=== PATIENT | female | born 1970 | race African-American/Black ===

== ENCOUNTER 2016-12-01 09:05 | Emergency (ER) | payer MEDICARE, OTHER ==
[~2016-12-01] VITALS: Ht 167.6 cm; Wt 75.9 kg
[~2016-12-01 09:05] MED LIST: ANR PR; ASPI-664 PO; AZIT250T94 PO; AZIT500T3 PO; CYCL-319 PO; DOCU-144 PO; GUAI120S26 PO; HYDR-3011 PO; IBUP-1542 PO; LOSA50TA6 PO; PROM6.25 PO; UDROBDM PO; ULT50 PO
[2016-12-01 09:30] VITALS: Ht 167.6 cm; Wt 75.9 kg
[2016-12-01] MEDS ORDERED: KETOROLAC 30 MG INJ IM STA (10:48)
[2016-12-01 11:07] LABS: URINE BLOOD (Dip) POC Negative (NEGATIVE)
--- NOTE | 2016-12-01 11:18 | ERD ---
ER Documentation Chief Complaint Date/Time DATE: 12/01/16 TIME: 11:16 Chief Complaint VAGINAL ITCHINESS X 5 DAYS HPI This is a 46-year-old female presenting to the emergency department for vaginal itching 5 days. Patient states itching is localized to genital area however has some generalized itching as well. No change in soap or detergent. No vaginal discharge or bleeding. No rash. No vaginal lesions. No dysuria or hematuria. Patient is and has no new sexual partners. No fevers or chills. Patient states itching started after she began a penicillin prescription prescribed by her dentist. No abdominal pain, nausea, vomiting or diarrhea. Patient states she has left-sided lower back pain that comes and goes. Denies any pain right now however last week she had severe left-sided lower back pain. Pain was nonradiating. ROS All systems reviewed and are negative except as per history of present illness. Medications Home Meds Active Scripts Diphenhydramine Hcl* (Benadryl*) 50 Mg Cap, 50 MG PO Q6 Y for ITCHING, #15 CAP Prov:DAMARI ARGUETA NP 12/01/16 Fluconazole* (Diflucan*) 150 Mg Tablet, 150 MG PO ONCE, #1 TAB Prov:DAMARI ARGUETA NP 12/01/16 Ibuprofen* (Motrin*) 600 Mg Tab, 600 MG PO Q6, #30 TAB Prov:ALISSON DAVILA PA-C 10/28/16 Vaknxyhnsac-K-Zqfimglegp Hb* (Guaifenesin* DM Syrup) 120 Ml Syrup, 10 ML PO Q4H Y for COUGH, #120 ML Prov:ALISSON DAVILA PA-C 10/28/16 Azithromycin* (Zithromax*) 250 Mg Tablet, 250 MG PO .ZPACK DIRECTED, #6 TAB TAKE 500 MG (2 TABS) THE FIRST DAY THEN 250 MG (1 TAB) DAYS 2-5 Prov:ALISSON DAVILA PA-C 10/28/16 Tramadol HCl (Tramadol HCl) 50 Mg Tablet, 50 MG PO Q6 Y for PAIN, #20 TAB Prov:JOVITA PENA PA-C 08/07/16 Ibuprofen* (Motrin*) 600 Mg Tab, 600 MG PO Q6H Y for PAIN AND OR ELEVATED TEMP, #30 TAB Prov:JOVITA PENA PA-C 08/07/16 Docusate Sodium* (Colace*) 100 Mg Capsule, 100 MG PO TID for 3 Days, #30 CAP Prov:HIEU JEAN 08/07/16 Hard Fat/Phenylephrine* (Anusol*) 1 Supp Supp, 1 SUPP CA Q6 for 3 Days, SUPP Prov:HIEU JEAN 08/07/16 Promethazine w/Codeine* (Phenergan w/Codeine* Syrup) 5 Ml Syrup, 5 ML PO Q4H Y for COUGH, #4 OZ Prov:SHAILESH SHELLEY PA-C 11/07/15 Azithromycin* (Zithromax*) 250 Mg Tablet, 250 MG PO .MARTINCK DIRECTED, #6 TAB TAKE 500 MG (2 TABS) THE FIRST DAY THEN 250 MG (1 TAB) DAYS 2-5 Prov:SHAILESH SHELLEY PA-C 11/07/15 Cyclobenzaprine Hcl* (Cyclobenzaprine Hcl*) 10 Mg Tablet, 10 MG PO TID, #15 TAB Prov:HIEU JEAN 09/25/15 Tramadol HCl (Tramadol HCl) 50 Mg Tab, 50 MG PO Q4 Y for PAIN, #20 TAB Prov:HIEU JEAN 09/25/15 Guaifenesin-Dextromethorphan* (Robitussin* DM) 100MG/10MG/5ML Syrup, 5 ML PO Q6H Y for COUGH, #1 ML Prov:JOSE JUAN CRUZ NP 04/30/15 Azithromycin* (Zithromax*) 500 Mg Tablet, 1000 MG PO ONCE, #1 TAB Prov:JOSE JUAN CRUZ LETTER OF CREDIT DOCUMENT EXAMINER 04/30/15 Reported Medications Losartan Potassium* (Losartan Potassium*) 50 Mg Tablet, 50 MG PO DAILY, TAB 11/13/14 Hydroxyzine Hcl* (Hydroxyzine Hcl*) 25 Mg Tablet, 25 MG PO DAILY, TAB 11/13/14 Aspirin* (Aspirin* EC) 81 Mg Tablet.dr, 81 MG PO DAILY, TAB 11/13/14 Allergies Allergies: Coded Allergies: Phenazopyridine (Verified Allergy, Unknown, 11/13/14) nitrofurantoin (Verified Allergy, Unknown, 11/13/14) prochlorperazine (Verified Allergy, Unknown, 11/13/14) PMhx/Soc History of Surgery: Yes (breast and head surgery) Anesthesia Reaction: No Hx Neurological Disorder: No Hx Respiratory Disorders: No Hx Cardiac Disorders: Yes (htn) Hx Psychiatric Problems: No Hx Miscellaneous Medical Probl: No Hx Alcohol Use: No Hx Substance Use: No Hx Tobacco Use: Yes Smoking Status: Current every day smoker Physical Exam Vitals Vital Signs Date Time Temp Pulse Resp B/P Pulse Ox O2 Delivery O2 Flow Rate FiO2 12/01/16 09:30 98.0 73 19 121/78 100 Physical Exam Const: No acute distress, alert Head: Atraumatic Eyes: Normal Conjunctiva ENT: Normal External Ears, Nose and Mouth. Neck: Full range of motion..~ No meningismus. Resp: Clear to auscultation bilaterally Cardio: Regular rate and rhythm, no murmurs Abd: Soft, non tender, non distended. Normal bowel sounds Skin: No petechiae or rashes Back: No midline or flank tenderness. No CVA tenderness Ext: No cyanosis, or edema Neur: Awake and alert Psych: Normal Mood and Affect Results 24 hrs Laboratory Tests Test 12/01/16 11:08 Bedside Urine Blood Negative Bedside Urine Glucose (UA) Negative Bedside Urine Ketones (LAB) Negative Bedside Urine Leukocyte Esterase (L Negative Bedside Urine Nitrite (LAB) Negative Bedside Urine Protein (LAB) Negative Bedside Urine pH (LAB) 6.5 Current Medications Medications (Trade) Dose Ordered Sig/Bobby Route PRN Reason Start Time Stop Time Status Last Admin Dose Admin Ketorolac Tromethamine (Toradol) 30 mg ONCE STAT IM 12/01/16 10:48 12/01/16 10:50 DC 12/01/16 11:33 Procedures/MDM ED COURSE: The patient was stable throughout ED course. I kept the patient and/or family informed of laboratory and diagnostic imaging results throughout the ED course. Toradol given Laboratory Urine dip negative Imaging Ultrasound kidneys Patient: ROBB VERNON : 1970 Age: 46 Sex: F MR #: [id number] DOS: 12/01/16 1048 Ordering MD: DAMARI ARGUETA NP Location: [facility] Room/Bed: PROCEDURE: Renal US. CLINICAL INDICATION: left sided low back pain r/o nephrolithiasis TECHNIQUE: Multiple sonographic images of the kidneys were obtained. The images were reviewed on a PACS workstation. COMPARISON: No prior studies are available for comparison. FINDINGS: The kidneys are well visualized. The right kidney measures 9.7 cm. The left kidney measures 9.5 cm. There are no focal areas of abnormal echogenicity. There is no evidence for obstructive uropathy. The bladder is collapsed. IMPRESSION: Unremarkable renal ultrasound. MDM: 46-year-old female presents to the emergency department for vaginal itching 5 days. Patient states she has generalized itching as well but more so localized to vagina. No vaginal discharge or bleeding. Patient also has history of intermittent left-sided flank pain. No pain at this time however patient is concerned about kidney stone. Patient now reports some pain to left flank and therefore Toradol given IM. Patient now denies pain. Patient reports history of alcohol abuse in the past. No alcohol intake at this time. Patient urinating well without difficulty. Urine dip negative for infection. Ultrasound kidneys unremarkable per radiology. Vital signs are stable. No fever or chills. exam is unremarkable. Patient is requesting that we test her for gonorrhea and chlamydia. No new sexual partners. Patient states generalized itching started after she began a penicillin prescription prescribed by her dentist. No rashes. Low suspicion for obstructive nephrolithiasis, UTI, pyelonephritis and appendicitis. Patient's differential diagnosis includes but not limited to allergic reaction, candidal vaginitis, bacterial vaginitis, gonorrhea, chlamydia , UTI, pelvic inflammatory disease, nephrolithiasis and pyelonephritis. Patient is appropriate for outpatient management will be given prescription for Diflucan. Instructed patient to follow-up with primary care provider in the next 2-3 days for reassessment. Return to ED for any high fever, chest pain, difficulty breathing, shortness breath, wheezing, vomiting, diarrhea, abdominal pain or any new or worsening symptoms. Patient verbalizes understanding. All questions answered at discharge. Departure Diagnosis: Primary Impression: Vaginitis Chronicity: acute Qualified Code: N76.0 - Acute vaginitis Additional Impressions: Back pain Back pain location: low back pain Chronicity: acute Back pain laterality: left Sciatica presence: without sciatica Qualified Code: M54.5 - Acute left- sided low back pain without sciatica Allergic reaction Encounter type: initial encounter Qualified Code: T78.40XA - Allergic reaction, initial encounter Condition: Stable DAMARI ARGUETA NP Dec 01, 2016 11:18
--- NOTE | 2016-12-01 11:32 | RADRPT ---
PROCEDURE: Renal US. CLINICAL INDICATION: left sided low back pain r/o nephrolithiasis TECHNIQUE: Multiple sonographic images of the kidneys were obtained. The images were reviewed on a PACS workstation. COMPARISON: No prior studies are available for comparison. FINDINGS: The kidneys are well visualized. The right kidney measures 9.7 cm. The left kidney measures 9.5 cm. There are no focal areas of abnormal echogenicity. There is no evidence for obstructive uropathy. Th e bladder is collapsed. IMPRESSION: Unremarkable renal ultrasound. RPTAT: QQ .Kat Petersen MD, Date Time Electronically viewed and signed by .Kat Petersen MD, MD on 12/01/2016 11:32 .J/
[2016-12-01] MEDS ORDERED: BEN50 PO (12:51)
[2016-12-01] MEDS ORDERED: FLUC150T17 PO (12:51)
== END 2016-12-01 13:01 | disposition home or self-care (01) ==
LOC: FTE 09:05
DX: N76.0 Acute vaginitis (principal); I10 Essential (primary) hypertension; F17.210 Nicotine dependence, cigarettes, uncomplicated; M54.5 Low back pain; T36.0X5A Adverse effect of penicillins, initial encounter; Z79.82 Long term (current) use of aspirin
CPT/HCPCS: 76775; 81003; 87591; 96372; 99285; J1885

== ENCOUNTER 2017-01-20 15:10 | Emergency (ER) | payer MEDICARE, OTHER ==
[~2017-01-20] VITALS: Wt 77.0 kg
[~2017-01-20 15:10] MED LIST changes: +BEN50 PO; +FLUC150T17 PO; +TRAM50TA2 PO; -ULT50 PO
[2017-01-20] MEDS ORDERED: ALBUTEROL 0.5% (NEB) 2.5 MG/0.5 ML AMP HHN STA (15:52)
[2017-01-20] MEDS ORDERED: DEXAMETHASONE 10 MG/ML 1 ML INJ PO ONE (16:00)
[2017-01-20] MEDS ORDERED: IBUPROFEN 600 MG TAB PO ONE (16:00)
--- NOTE | 2017-01-20 16:44 | RADRPT ---
PROCEDURE: XR Chest. CLINICAL INDICATION: COUGH TECHNIQUE: Single portable view of the chest was obtained COMPARISON: October 28, 2016 FINDINGS: The heart is normal in size. Pulmonary vascularity is within normal limits. The lungs are clear. There is no pleural effusion or pneumothorax. IMPRESSION: No acute cardiopulmonary process. Physician Walt Date Time Electronically viewed and signed by Sixto Alexander Physician on 01/20/2017 16:44 ML/
[2017-01-20] MEDS ORDERED: ALBU18HF INHALATION (16:52)
[2017-01-20] MEDS ORDERED: AZIT250T94 PO (16:52)
[2017-01-20] MEDS ORDERED: IBUP-1542 PO (16:52)
--- NOTE | 2017-01-20 16:57 | ERD ---
ER Documentation Chief Complaint Date/Time DATE: 01/20/17 TIME: 16:55 Chief Complaint FEVER, COUGH, BODYACHES, CONGESTION HPI This 46-year-old female presents with fever, cough and body aches for last 2 days. She has slight productive mucus. She denies any vomiting, abdominal pain , neck stiffness, rashes. ROS All systems reviewed and are negative except as per history of present illness. Medications Home Meds Active Scripts Albuterol Sulfate* (Ventolin HFA*) 18 Gm Hfa.aer.ad, 2 PUFF INHALATION Q4H, #1 INHALER Prov:WINSOME SCHULTZ MD 01/20/17 Ibuprofen* (Motrin*) 600 Mg Tab, 600 MG PO Q6, #15 TAB Prov:WINSOME SCHULTZ MD 01/20/17 Azithromycin* (Zithromax*) 250 Mg Tablet, 250 MG PO .ZPACK DIRECTED, #6 TAB TAKE 500 MG (2 TABS) THE FIRST DAY THEN 250 MG (1 TAB) DAYS 2-5 Prov:WINSOME SCHULTZ MD 01/20/17 Diphenhydramine Hcl* (Benadryl*) 50 Mg Cap, 50 MG PO Q6 Y for ITCHING, #15 CAP Prov:DAMARI ARGUETA NP 12/01/16 Fluconazole* (Diflucan*) 150 Mg Tablet, 150 MG PO ONCE, #1 TAB Prov:DAMARI ARGUETA NP 12/01/16 Ibuprofen* (Motrin*) 600 Mg Tab, 600 MG PO Q6, #30 TAB Prov:ALISSON DAVILA PA-C 10/28/16 Xjncahvefmh-V-Qnuopcrygb Hb* (Guaifenesin* DM Syrup) 120 Ml Syrup, 10 ML PO Q4H Y for COUGH, #120 ML Prov:ALISSON DAVILA PA-C 10/28/16 Azithromycin* (Zithromax*) 250 Mg Tablet, 250 MG PO .ZPACK DIRECTED, #6 TAB TAKE 500 MG (2 TABS) THE FIRST DAY THEN 250 MG (1 TAB) DAYS 2-5 Prov:ALISSON DAVILA PA-C 10/28/16 Tramadol HCl (Tramadol HCl) 50 Mg Tablet, 50 MG PO Q6 Y for PAIN, #20 TAB Prov:JOVITA PENA PA-C 08/07/16 Ibuprofen* (Motrin*) 600 Mg Tab, 600 MG PO Q6H Y for PAIN AND OR ELEVATED TEMP, #30 TAB Prov:JOVITA PENA PA-C 08/07/16 Docusate Sodium* (Colace*) 100 Mg Capsule, 100 MG PO TID for 3 Days, #30 CAP Prov:HIEU JEAN 08/07/16 Hard Fat/Phenylephrine* (Anusol*) 1 Supp Supp, 1 SUPP [place] Q6 for 3 Days, SUPP Prov:HIEU JEAN 08/07/16 Promethazine w/Codeine* (Phenergan w/Codeine* Syrup) 5 Ml Syrup, 5 ML PO Q4H Y for COUGH, #4 OZ Prov:SHAILESH SHELLEY PA-C 11/07/15 Azithromycin* (Zithromax*) 250 Mg Tablet, 250 MG PO .ZPACK DIRECTED, #6 TAB TAKE 500 MG (2 TABS) THE FIRST DAY THEN 250 MG (1 TAB) DAYS 2-5 Prov:SHAILESH SHELLEY PA-C 11/07/15 Cyclobenzaprine Hcl* (Cyclobenzaprine Hcl*) 10 Mg Tablet, 10 MG PO TID, #15 TAB Prov:HIEU JEAN 09/25/15 Tramadol HCl (Tramadol HCl) 50 Mg Tab, 50 MG PO Q4 Y for PAIN, #20 TAB Prov:HIEU JEAN 09/25/15 Guaifenesin-Dextromethorphan* (Robitussin* DM) 100MG/10MG/5ML Syrup, 5 ML PO Q6H Y for COUGH, #1 ML Prov:JOSE JUAN CRUZ NP 04/30/15 Azithromycin* (Zithromax*) 500 Mg Tablet, 1000 MG PO ONCE, #1 TAB Prov:JOSE JUAN CRUZ NP 04/30/15 Reported Medications Losartan Potassium* (Losartan Potassium*) 50 Mg Tablet, 50 MG PO DAILY, TAB 11/13/14 Hydroxyzine Hcl* (Hydroxyzine Hcl*) 25 Mg Tablet, 25 MG PO DAILY, TAB 11/13/14 Aspirin* (Aspirin* EC) 81 Mg Tablet.dr, 81 MG PO DAILY, TAB 11/13/14 Allergies Allergies: Coded Allergies: Phenazopyridine (Verified Allergy, Unknown, 11/13/14) nitrofurantoin (Verified Allergy, Unknown, 11/13/14) prochlorperazine (Verified Allergy, Unknown, 11/13/14) PMhx/Soc History of Surgery: Yes (breast and head surgery) Anesthesia Reaction: No Hx Neurological Disorder: No Hx Respiratory Disorders: No Hx Cardiac Disorders: Yes (htn) Hx Psychiatric Problems: No Hx Miscellaneous Medical Probl: No Hx Alcohol Use: No Hx Substance Use: No Hx Tobacco Use: Yes Smoking Status: Never smoker Physical Exam Vitals Vital Signs Date Time Temp Pulse Resp B/P Pulse Ox O2 Delivery O2 Flow Rate FiO2 01/20/17 16:03 87 18 96 21 01/20/17 15:13 101.4 99 19 119/77 98 Physical Exam Const: [] Alert, [id number]. Complete sentences. Head: Atraumatic Eyes: Normal Conjunctiva ENT: Normal External Ears, Nose and Mouth. Neck: Full range of motion..~ No meningismus. Resp: Clear to auscultation bilaterally. Wheezy cough without significant wheeze at rest no rales or retractions appreciated. Cardio: Regular rate and rhythm, no murmurs Abd: Soft, non tender, non distended. Normal bowel sounds Skin: No petechiae or rashes Back: No midline or flank tenderness Ext: No cyanosis, or edema Neur: Awake and alert Psych: Normal Mood and Affect Results 24 hrs Current Medications Medications (Trade) Dose Ordered Sig/Bobby Route PRN Reason Start Time Stop Time Status Last Admin Dose Admin Ibuprofen (Motrin) 600 mg ONCE ONCE PO 01/20/17 16:00 01/20/17 16:01 DC 01/20/17 15:59 Dexamethasone (Decadron) 8 mg ONCE ONCE PO 01/20/17 16:00 01/20/17 16:01 DC 01/20/17 15:59 Albuterol (Proventil 0.5% (Neb)) 2.5 mg ONCE STAT HHN 01/20/17 15:52 01/20/17 15:55 DC 01/20/17 16:02 Procedures/MDM Patient is given ibuprofen for fever. Patient was given Decadron 8 mg by mouth. She was given albuterol treatment 1. Chest X-ray 1V Interpreted by me: Soft Tissue: No acute abnormalities Bones: No acute abnormalities Mediastinum/Cardiac Silhouette/Lungs: [No acute abnormalities]. Impression- normal 1 view chest x-ray Patient presents with fever and body aches and URI symptoms suggestive of an acute viral illness without evidence of respiratory distress or hypoxemia.. Patient is requesting antibiotics will be administered with counseling that likely viral in okay to hold antibiotics for 2-3 days. She will be treated with Zithromax, Ventolin and ibuprofen and instructed to follow-up with primary doctor this week return to the ER for any worsening symptoms. The patient was stable with no new complaints during the ER course. Clinically, there is no current evidence to suggest meningitis, sepsis, acute abdomen, pneumonia, acute coronary syndrome, pulmonary embolism, or any other emergent condition appearing to require further evaluation or hospitalization. The patient should certainly return for any new or worsening symptoms per the aftercare instructions. They should otherwise follow-up with her primary care doctor for reevaluation this week. Departure Diagnosis: Primary Impression: Bronchitis Condition: Stable Patient Instructions: Bronchitis With Wheezing (Adult) Additional Instructions: X-ray normal. May be influenza but we will treat for bronchitis. Recheck for new or worsening symptoms with primary care doctor. WINSOME SCHULTZ MD Jan 20, 2017 16:57
[2017-01-20] MEDS ORDERED: D-ME473S18 PO (17:09)
== END 2017-01-20 17:16 | disposition home or self-care (01) ==
LOC: FTE 15:10
DX: J20.9 Acute bronchitis, unspecified (principal); I10 Essential (primary) hypertension; Z79.82 Long term (current) use of aspirin
CPT/HCPCS: 71010; 94664; 99284; J1100

== ENCOUNTER 2017-02-11 08:30 | Emergency (ER) | payer MEDICARE, OTHER ==
[~2017-02-11] VITALS: Ht 167.6 cm; Wt 77.0 kg
[~2017-02-11 08:30] MED LIST changes: +ALBU18HF INHALATION; +D-ME473S18 PO
[2017-02-11 08:32] VITALS: Ht 167.6 cm; Wt 77.0 kg
[2017-02-11] MEDS ORDERED: IBUP-1542 PO (08:49)
[2017-02-11] MEDS ORDERED: AMO500 PO (08:49)
--- NOTE | 2017-02-11 13:27 | ERD ---
ER Documentation Chief Complaint Date/Time DATE: 02/11/17 TIME: 13:26 Chief Complaint sore throat , ear pain x 3 days HPI Patient is a 46-year-old female with hypertension who presents with a sore throat. The patient says "I have strep throat". She says that she has a sore throat and ear pain. She says that it started 3 days ago and that her son was recently diagnosed with strep throat. The patient denies fevers. She has tried Tylenol for the pain. Upon review of old medical records patient has multiple visits to the ER for various complaints. ROS All systems reviewed and are negative except as per history of present illness. Medications Home Meds Active Scripts Ibuprofen* (Motrin*) 600 Mg Tab, 600 MG PO Q6H Y for PAIN AND OR ELEVATED TEMP, #30 TAB Prov:GIANLUCA RAMOS MD 02/11/17 Amoxicillin* (Amoxicillin*) 500 Mg Cap, 500 MG PO TID for 10 Days, CAP Prov:GIANLUCA RAMOS MD 02/11/17 Dextromethorphan Hb-Promethazine Hcl (Promethazine DM Syrup) 473 Ml Syrup, 10 ML PO Q6H Y for COUGH, #4 OZ Prov:HIEU JEAN 01/20/17 Albuterol Sulfate* (Ventolin HFA*) 18 Gm Hfa.aer.ad, 2 PUFF INHALATION Q4H, #1 INHALER Prov:WINSOME SCHULTZ MD 01/20/17 Ibuprofen* (Motrin*) 600 Mg Tab, 600 MG PO Q6, #15 TAB Prov:WINSOME SCHULTZ MD 01/20/17 Azithromycin* (Zithromax*) 250 Mg Tablet, 250 MG PO .ZPACK DIRECTED, #6 TAB TAKE 500 MG (2 TABS) THE FIRST DAY THEN 250 MG (1 TAB) DAYS 2-5 Prov:WINSOME SCHULTZ MD 01/20/17 Diphenhydramine Hcl* (Benadryl*) 50 Mg Cap, 50 MG PO Q6 Y for ITCHING, #15 CAP Prov:DAMARI ARGUETA NP 12/01/16 Fluconazole* (Diflucan*) 150 Mg Tablet, 150 MG PO ONCE, #1 TAB Prov:DAMARI ARGUETA NP 12/01/16 Ibuprofen* (Motrin*) 600 Mg Tab, 600 MG PO Q6, #30 TAB Prov:ALISSON DAVILA PA-C 10/28/16 Ebwbjcvbtxz-Y-Kfotitmjef Hb* (Guaifenesin* DM Syrup) 120 Ml Syrup, 10 ML PO Q4H Y for COUGH, #120 ML Prov:ALISSON DAVILA PA-C 10/28/16 Azithromycin* (Zithromax*) 250 Mg Tablet, 250 MG PO .ZPACK DIRECTED, #6 TAB TAKE 500 MG (2 TABS) THE FIRST DAY THEN 250 MG (1 TAB) DAYS 2-5 Prov:ALISSON DAIVLA PA-C 10/28/16 Tramadol HCl (Tramadol HCl) 50 Mg Tablet, 50 MG PO Q6 Y for PAIN, #20 TAB Prov:JOVITA PENA PA-C 08/07/16 Ibuprofen* (Motrin*) 600 Mg Tab, 600 MG PO Q6H Y for PAIN AND OR ELEVATED TEMP, #30 TAB Prov:JOVITA PENA PA-C 08/07/16 Docusate Sodium* (Colace*) 100 Mg Capsule, 100 MG PO TID for 3 Days, #30 CAP Prov:HIEU JEAN 08/07/16 Hard Fat/Phenylephrine* (Anusol*) 1 Supp Supp, 1 SUPP MT Q6 for 3 Days, SUPP Prov:HIEU JEAN 08/07/16 Promethazine w/Codeine* (Phenergan w/Codeine* Syrup) 5 Ml Syrup, 5 ML PO Q4H Y for COUGH, #4 OZ Prov:SHAILESH SHELLEY PA-C 11/07/15 Azithromycin* (Zithromax*) 250 Mg Tablet, 250 MG PO .ZPACK DIRECTED, #6 TAB TAKE 500 MG (2 TABS) THE FIRST DAY THEN 250 MG (1 TAB) DAYS 2-5 Prov:SHAILESH SHELLEY PA-C 11/07/15 Cyclobenzaprine Hcl* (Cyclobenzaprine Hcl*) 10 Mg Tablet, 10 MG PO TID, #15 TAB Prov:HIEU JEAN 09/25/15 Tramadol HCl (Tramadol HCl) 50 Mg Tab, 50 MG PO Q4 Y for PAIN, #20 TAB Prov:HIEU JEAN [place] 09/25/15 Guaifenesin-Dextromethorphan* (Robitussin* DM) 100MG/10MG/5ML Syrup, 5 ML PO Q6H Y for COUGH, #1 ML Prov:JOSE JUAN CRUZ NP 04/30/15 Azithromycin* (Zithromax*) 500 Mg Tablet, 1000 MG PO ONCE, #1 TAB Prov:JOSE JUAN CRUZ NP 04/30/15 Reported Medications Losartan Potassium* (Losartan Potassium*) 50 Mg Tablet, 50 MG PO DAILY, TAB 11/13/14 Hydroxyzine Hcl* (Hydroxyzine Hcl*) 25 Mg Tablet, 25 MG PO DAILY, TAB 11/13/14 Aspirin* (Aspirin* EC) 81 Mg Tablet.dr, 81 MG PO DAILY, TAB 11/13/14 Allergies Allergies: Coded Allergies: nitrofurantoin (Verified Allergy, Unknown, 02/11/17) phenazopyridine (Verified Allergy, Unknown, 02/11/17) prochlorperazine (Verified Allergy, Unknown, 02/11/17) PMhx/Soc History of Surgery: Yes (breast and head surgery) Anesthesia Reaction: No Hx Neurological Disorder: No Hx Respiratory Disorders: No Hx Cardiac Disorders: Yes (htn) Hx Psychiatric Problems: No Hx Miscellaneous Medical Probl: No Hx Alcohol Use: No Hx Substance Use: No Hx Tobacco Use: Yes Smoking Status: Current every day smoker FmHx Family History: No diabetes Physical Exam Vitals Vital Signs Date Time Temp Pulse Resp B/P Pulse Ox O2 Delivery O2 Flow Rate FiO2 02/11/17 08:32 98.5 80 18 131/86 97 Physical Exam Const: No acute distress Head: Atraumatic Eyes: Normal Conjunctiva ENT: Erythematous tonsils bilaterally, no stridor over the neck Neck: Full range of motion..~ No meningismus. Resp: Clear to auscultation bilaterally Cardio: Regular rate and rhythm, no murmurs Abd: Soft, non tender, non distended. Normal bowel sounds Skin: No petechiae or rashes Back: No midline or flank tenderness Ext: No cyanosis, or edema Neur: Awake and alert Psych: Normal Mood and Affect Procedures/MDM Smoking Cessation Therapy: Pt. was lectured for greater than 3 minutes on the health risks of continued smoking and the benefits of cessation. Patient is a 46-year-old female who presents with what appears to be a pharyngitis. The patient will be treated with amoxicillin. The patient's son had strep throat recently as well. The patient can return for any worsening symptoms. I doubt peritonsillar abscess, retropharyngeal abscess, or epiglottitis. I believe outpatient management is appropriate. The patient can return for any worsening symptoms. Departure Diagnosis: Primary Impression: Pharyngitis Pharyngitis/tonsillitis etiology: unspecified etiology Qualified Code: J02.9 - Pharyngitis, unspecified etiology Additional Impression: Sore throat Condition: Fair Patient Instructions: Pharyngitis, Strep (Presumed) Additional Instructions: Call your primary care doctor TOMORROW for an appointment during the next 1-2 days.See the doctor sooner or return here if your condition worsens before your appointment time. GIANLUCA RAMOS MD Feb 11, 2017 13:27
== END 2017-02-11 09:04 | disposition home or self-care (01) ==
LOC: FTE 08:30
DX: J02.9 Acute pharyngitis, unspecified (principal); I10 Essential (primary) hypertension; F17.210 Nicotine dependence, cigarettes, uncomplicated; Z79.82 Long term (current) use of aspirin
CPT/HCPCS: 99283

== ENCOUNTER 2017-03-10 08:44 | Emergency (ER) | payer MEDICARE, OTHER ==
[~2017-03-10] VITALS: Ht 167.6 cm; Wt 79.0 kg
[~2017-03-10 08:44] MED LIST changes: +AMO500 PO
[2017-03-10 08:47] VITALS: Ht 167.6 cm; Wt 79.0 kg
[2017-03-10] MEDS ORDERED: ALBU18HF INHALATION (09:39)
[2017-03-10] MEDS ORDERED: NAPR-260 PO (09:42)
[2017-03-10] MEDS ORDERED: [UNRECOGNIZED DRUG - CODE] PO (09:42)
[2017-03-10] MEDS ORDERED: FLUT9.9S NASAL (09:42)
[2017-03-10] MEDS ORDERED: POLY17PO6 PO (09:43)
[2017-03-10] MEDS ORDERED: DOCU-144 PO (09:44)
--- NOTE | 2017-03-10 09:57 | ERD ---
ER Documentation Chief Complaint Date/Time DATE: 03/10/17 TIME: 09:52 Chief Complaint cough , congestion , body ache x 2 days HPI This a 46-year-old female who presents to the emergency department today complaining of a "chest cold", ears clogged, back pain, constipation, runny nose , headache and cough. States she is unsure if she has had a fever. States she smoked cigarettes .Denies any dysuria, vomiting ROS All systems reviewed and are negative except as per history of present illness. Medications Home Meds Active Scripts Docusate Sodium* (Colace*) 100 Mg Capsule, 100 MG PO TID, #30 CAP Prov:CINDA DE LA CRUZ PA-C 03/10/17 Polyethylene Glycol* (Miralax*) 17 Gm Powd.pack, 17 GM PO DAILY, #10 Prov:CINDA DE LA CRUZ PA-C 03/10/17 Fluticasone Propionate (Flonase Allergy Relief) 9.9 Ml Reader.susp, 2 SPRAY NASAL DAILY, #1 BOTTLE TO EACH NOSTRIL Prov:CINDA DE LA CRUZ PA-C 03/10/17 Naproxen* (Naprosyn*) 500 Mg Tablet, 500 MG PO BID Y for PAIN AND/OR INFLAMMATION, #30 TAB Prov:CINDA DE LA CRUZ PA-C 03/10/17 Pseudoephedrine HCl (Sinus 12 Hour) 120 Mg Tablet.er, 120 MG PO BID, #20 TAB Prov:CINDA DE LA CRUZ PA-C 03/10/17 Albuterol Sulfate* (Ventolin HFA*) 18 Gm Hfa.aer.ad, 2 PUFF INHALATION Q4H, #1 INHALER Prov:CINDA DE LA CRUZ PA-C 03/10/17 Ibuprofen* (Motrin*) 600 Mg Tab, 600 MG PO Q6H Y for PAIN AND OR ELEVATED TEMP, #30 TAB Prov:GIANLUCA RAMOS MD 02/11/17 Amoxicillin* (Amoxicillin*) 500 Mg Cap, 500 MG PO TID for 10 Days, CAP Prov:GIANLUCA RAMOS MD 02/11/17 Dextromethorphan Hb-Promethazine Hcl (Promethazine DM Syrup) 473 Ml Syrup, 10 ML PO Q6H Y for COUGH, #4 OZ Prov:HIEU JEAN 01/20/17 Albuterol Sulfate* (Ventolin HFA*) 18 Gm Hfa.aer.ad, 2 PUFF INHALATION Q4H, #1 INHALER Prov:WINSOME SCHULTZ MD 01/20/17 Ibuprofen* (Motrin*) 600 Mg Tab, 600 MG PO Q6, #15 TAB Prov:WINSOME SCHULTZ MD 01/20/17 Azithromycin* (Zithromax*) 250 Mg Tablet, 250 MG PO .ZPACK DIRECTED, #6 TAB TAKE 500 MG (2 TABS) THE FIRST DAY THEN 250 MG (1 TAB) DAYS 2-5 Prov:WINSOME SCHULTZ MD 01/20/17 Diphenhydramine Hcl* (Benadryl*) 50 Mg Cap, 50 MG PO Q6 Y for ITCHING, #15 CAP Prov:DAMARI ARGUETA NP 12/01/16 Fluconazole* (Diflucan*) 150 Mg Tablet, 150 MG PO ONCE, #1 TAB Prov:DAMARI ARGUETA NP 12/01/16 Ibuprofen* (Motrin*) 600 Mg Tab, 600 MG PO Q6, #30 TAB Prov:ALISSON DAVILA PA-C 10/28/16 Hldrgimviyt-T-Fkrwpqwkno Hb* (Guaifenesin* DM Syrup) 120 Ml Syrup, 10 ML PO Q4H Y for COUGH, #120 ML Prov:ALISSON DAVILA PA-C 10/28/16 Azithromycin* (Zithromax*) 250 Mg Tablet, 250 MG PO .ZPACK DIRECTED, #6 TAB TAKE 500 MG (2 TABS) THE FIRST DAY THEN 250 MG (1 TAB) DAYS 2-5 Prov:ALISSON DAVILA PA-C 10/28/16 Tramadol HCl (Tramadol HCl) 50 Mg Tablet, 50 MG PO Q6 Y for PAIN, #20 TAB Prov:JOVITA PENA PA-C 08/07/16 Ibuprofen* (Motrin*) 600 Mg Tab, 600 MG PO Q6H Y for PAIN AND OR ELEVATED TEMP, #30 TAB Prov:JOVITA PENA PA-C 08/07/16 Docusate Sodium* (Colace*) 100 Mg Capsule, 100 MG PO TID for 3 Days, #30 CAP Prov:HIEU JEAN 08/07/16 Hard Fat/Phenylephrine* (Anusol*) 1 Supp Supp, 1 SUPP TX Q6 for 3 Days, SUPP Prov:HIEU JEAN 08/07/16 Promethazine w/Codeine* (Phenergan w/Codeine* Syrup) 5 Ml Syrup, 5 ML PO Q4H Y for COUGH, #4 OZ Prov:SHAILESH SHELLEY PA-C 11/07/15 Azithromycin* (Zithromax*) 250 Mg Tablet, 250 MG PO .ZPACK DIRECTED, #6 TAB TAKE 500 MG (2 TABS) THE FIRST DAY THEN 250 MG (1 TAB) DAYS 2-5 Prov:SHAILESH SHELLEY PA-C 11/07/15 Cyclobenzaprine Hcl* (Cyclobenzaprine Hcl*) 10 Mg Tablet, 10 MG PO TID, #15 TAB Prov:HIEU JEAN 09/25/15 Tramadol HCl (Tramadol HCl) 50 Mg Tab, 50 MG PO Q4 Y for PAIN, #20 TAB Prov:HIEU JEAN 09/25/15 Guaifenesin-Dextromethorphan* (Robitussin* DM) 100MG/10MG/5ML Syrup, 5 ML PO Q6H Y for COUGH, #1 ML Prov:JOSE JUAN CRUZ NP 04/30/15 Azithromycin* (Zithromax*) 500 Mg Tablet, 1000 MG PO ONCE, #1 TAB Prov:JOSE JUAN CRUZ NP 04/30/15 Reported Medications Losartan Potassium* (Losartan Potassium*) 50 Mg Tablet, 50 MG PO DAILY, TAB 11/13/14 Hydroxyzine Hcl* (Hydroxyzine Hcl*) 25 Mg Tablet, 25 MG PO DAILY, TAB 11/13/14 Aspirin* (Aspirin* EC) 81 Mg Tablet.dr, 81 MG PO DAILY, TAB 11/13/14 Allergies Allergies: Coded Allergies: nitrofurantoin (Verified Allergy, Unknown, 02/11/17) phenazopyridine (Verified Allergy, Unknown, 02/11/17) prochlorperazine (Verified Allergy, Unknown, 02/11/17) PMhx/Soc Medical and Surgical Hx: pt denies Medical Hx, pt denies Surgical Hx History of Surgery: Yes (breast and head surgery) Anesthesia Reaction: No Hx Neurological Disorder: No Hx Respiratory Disorders: No Hx Cardiac Disorders: Yes (htn) Hx Psychiatric Problems: No Hx Miscellaneous Medical Probl: No Hx Alcohol Use: No Hx Substance Use: No Hx Tobacco Use: No Physical Exam Vitals Vital Signs Date Time Temp Pulse Resp B/P Pulse Ox O2 Delivery O2 Flow Rate FiO2 03/10/17 08:47 98.3 85 18 146/93 100 Physical Exam Const: No acute distress Head: Atraumatic Eyes: Normal Conjunctiva ENT: Ears TMs normal. Nose mild drainage. Throat no erythema no exudate Neck: Full range of motion..~ No meningismus. Resp: Clear to auscultation bilaterally no absent breath sounds. No wheezing. Cardio: Regular rate and rhythm, no murmurs Abd: Soft, non tender, non distended. Normal bowel sounds Skin: No petechiae or rashes Back: No midline tenderness. Bilateral paraspinal tenderness. No CVA tenderness Ext: No cyanosis, or edema Neur: Awake and alert Psych: Normal Mood and Affect Procedures/MDM This a 46-year-old female who presents to the emergency department today with multiple complaints. Upon review of patient's medical records she has had multiple visits to the emergency department for various complaints. She was seen here on January 20 and was given azithromycin to treat a URI. She returned on February 11 and was given amoxicillin for pharyngitis. Patient is afebrile and otherwise well-appearing. Her oxygen saturation 100%. Do not feel that she requires a chest x-ray. Low suspicion for pneumonia, PE, abscess, pleural effusion, pneumothorax Patient symptoms at this time is consistent with URI likely viral. I have low suspicion for strep pharyngitis, peritonsillar abscess, retropharyngeal abscess , otitis media, PNA, sinusitis, abscess, meningitis, sepsis, or other acute infectious bacterial process. Patient reported constipation for the past 3 days. She states she has had this in the past. She is requesting medication for her constipation. She has no abdominal pain on physical exam. Low suspicion for obstruction. Patient was also requesting a refill on her inhaler and Sudafed. Patient was instructed to stop smoking cigarettes. Patient wanted to know what smoking cigarettes had to do with her cough. I have educated the patient. Patient indicated that she has been unable to get into her primary care doctor and that when she comes to the emergency room. Have explained to her that she does need to follow-up with her insurance and possibly change primary care doctor that she is never able to see them. Patient was also complaining of back pain that she states is chronic. See she has had a CT scan in the past and was try to get referral for an MRI however she has not been able to do this. Denies any loss of bowel or bladder control, dysuria. Do not feel the patient requires a UA or imaging at this time. Patient symptoms at this time is consistent with acute on chronic. Low suspicion for acute fracture dislocation, cauda equina or abscess Patient was given a prescription for Sudafed, Flonase, MiraLAX, Colace, Ventolin. I do not feel the patient requires antibiotics at this time. At this time the patient is stable for discharge and outpatient management. They should follow up with their PCP in the next 1-2. They may return to the emergency department sooner if symptoms persist or worsen. Patient understood and agreed with the plan. Departure Diagnosis: Primary Impression: Multiple complaints Condition: Fair Patient Instructions: Back Pain (Acute Or Chronic), Constipation (Adult), Uri, Viral, No Abx (Adult) Additional Instructions: Call your primary care doctor TOMORROW for an appointment during the next 1-2 days.See the doctor sooner or return here if your condition worsens before your appointment time. Take Sudafed as prescribed Use inhaler only as needed Take Naprosyn for back pain Use Flonase as prescribed Take MiraLAX and Colace for constipation CINDA DE LA CRUZ PA-C Mar 10, 2017 09:57
== END 2017-03-10 10:00 | disposition home or self-care (01) ==
LOC: FTE 08:44
DX: R05 Cough (principal); M54.9 Dorsalgia, unspecified; K59.00 Constipation, unspecified; R09.89 Other specified symptoms and signs involving the circulatory and respiratory systems; R51 Headache; F17.210 Nicotine dependence, cigarettes, uncomplicated; I10 Essential (primary) hypertension; Z79.82 Long term (current) use of aspirin
CPT/HCPCS: 99283

== ENCOUNTER 2017-09-16 01:23 | Emergency (ER) | payer MEDICARE, OTHER ==
[~2017-09-16] VITALS: Ht 167.6 cm; Wt 84.1 kg
[~2017-09-16 01:23] MED LIST changes: -AMO500 PO; +AMOX500C2 PO; +FLUT9.9S NASAL; +NAPR-260 PO; +POLY17PO6 PO; +[UNRECOGNIZED DRUG - CODE] PO
[2017-09-16 01:34] VITALS: Ht 167.6 cm; Wt 84.1 kg
[2017-09-16] MEDS ORDERED: HYDROCODONE/APAP (5/325) TAB PO STA (02:01)
--- NOTE | 2017-09-16 02:46 | RADRPT ---
PROCEDURE: CT brain without contrast. CLINICAL INDICATION: Headache. TECHNIQUE: CT scan of the brain was performed on a multi-detector high-resolution CT scanner. Co ntiguous axial images were obtained from the skull base to the vertex without intravenous contrast. Coronal and sagittal reformatted images were also obtained. Images were reviewed on the PACS works tation. One or more of the following dose reduction techniques were used: - Automated exposure control. - Adjustment of the mA and/or kV according to patient size. - Use of iterative reconstruction technique. Exam CTD/vol = 45.01 mGy. Total exam DLP = 810.25 mGy-cm. COMPARISON: None. FINDINGS: The ventricles and cortical sulci are prominent consistent with mild cerebral volume loss. There are no areas of abnormal attenuation within the brain parenchyma. There is no mass effect or midline sh ift. There is no intracranial hemorrhage or abnormal extra-axial collection. The calvarium is intact. There is no evidence of fracture. Visualized paranasal sinuses and mastoid air cells are clear. IMPRESSION: No acute intracranial abnormality identified. Mild cerebral volume loss. .Shon Welsh MD, MD Date Time Electronically viewed and signed by .Shon Welsh MD, MD on 09/16/2017 02:46 .T/
[2017-09-16] MEDS ORDERED: NAPR-260 PO (03:09)
[2017-09-16] MEDS ORDERED: NAPROXEN 500 MG TAB PO STA (03:12)
--- NOTE | 2017-09-16 03:41 | ERD ---
ER Documentation Chief Complaint Chief Complaint headache. states bump head on a doorway earlier at 1300 HPI This is a 47-year-old female presenting to the emergency department complaining of a severe headache and nasal pain status post hitting her head on a doorway at 1300. Patient states that she has had an anxiety attack and she took medication for anxiety. She denies taking any medications for this. She denies any neuro deficits ROS All systems reviewed and are negative except as per history of present illness. Medications Home Meds Active Scripts Naproxen* (Naprosyn*) 500 Mg Tablet, 500 MG PO BID, #30 TAB Prov:JOVITA PENA PA-C 09/16/17 Docusate Sodium* (Colace*) 100 Mg Capsule, 100 MG PO TID, #30 CAP Prov:CINDA DE LA CRUZ PA-C 03/10/17 Polyethylene Glycol* (Miralax*) 17 Gm Powd.pack, 17 GM PO DAILY, #10 Prov:CINDA DE LA CRUZ PA-C 03/10/17 Fluticasone Propionate (Flonase Allergy Relief) 9.9 Ml Sallis.susp, 2 SPRAY NASAL DAILY, #1 BOTTLE TO EACH NOSTRIL Prov:CINDA DE LA CRUZ PA-C 03/10/17 Naproxen* (Naprosyn*) 500 Mg Tablet, 500 MG PO BID Y for PAIN AND/OR INFLAMMATION, #30 TAB Prov:CINDA DE LA CRUZ PA-C 03/10/17 Pseudoephedrine HCl (Sinus 12 Hour) 120 Mg Tablet.er, 120 MG PO BID, #20 TAB Prov:ICNDA DE LA CRUZ PA-C 03/10/17 Albuterol Sulfate* (Ventolin HFA*) 18 Gm Hfa.aer.ad, 2 PUFF INHALATION Q4H, #1 INHALER Prov:CINDA DE LA CRUZ PA-C 03/10/17 Ibuprofen* (Motrin*) 600 Mg Tab, 600 MG PO Q6H Y for PAIN AND OR ELEVATED TEMP, #30 TAB Prov:GIANLUCA RAMOS MD 02/11/17 Amoxicillin* (Amoxicillin*) 500 Mg Cap, 500 MG PO TID for 10 Days, CAP Prov:GIANLUCA RAMOS MD 02/11/17 Dextromethorphan Hb-Promethazine Hcl (Promethazine DM Syrup) 473 Ml Syrup, 10 ML PO Q6H Y for COUGH, #4 OZ Prov:HIEU JEAN 01/20/17 Albuterol Sulfate* (Ventolin HFA*) 18 Gm Hfa.aer.ad, 2 PUFF INHALATION Q4H, #1 INHALER Prov:WINSOME SCHULTZ MD 01/20/17 Ibuprofen* (Motrin*) 600 Mg Tab, 600 MG PO Q6, #15 TAB Prov:WINSOME SCHULTZ MD 01/20/17 Azithromycin* (Zithromax*) 250 Mg Tablet, 250 MG PO .ZPACK DIRECTED, #6 TAB TAKE 500 MG (2 TABS) THE FIRST DAY THEN 250 MG (1 TAB) DAYS 2-5 Prov:WINSOME SCHULTZ MD 01/20/17 Diphenhydramine Hcl* (Benadryl*) 50 Mg Cap, 50 MG PO Q6 Y for ITCHING, #15 CAP Prov:DAMARI ARGUETA NP 12/01/16 Fluconazole* (Diflucan*) 150 Mg Tablet, 150 MG PO ONCE, #1 TAB Prov:DAMARI ARGUETA NP 12/01/16 Ibuprofen* (Motrin*) 600 Mg Tab, 600 MG PO Q6, #30 TAB Prov:ALISSON DAVILA PA-C 10/28/16 Sjphhnfqvpd-E-Svullcrdkm Hb* (Guaifenesin* DM Syrup) 120 Ml Syrup, 10 ML PO Q4H Y for COUGH, #120 ML Prov:ALISSON DAVILA PA-C 10/28/16 Azithromycin* (Zithromax*) 250 Mg Tablet, 250 MG PO .ZPACK DIRECTED, #6 TAB TAKE 500 MG (2 TABS) THE FIRST DAY THEN 250 MG (1 TAB) DAYS 2-5 Prov:ALISSON DAVILA PA-C 10/28/16 Tramadol HCl (Tramadol HCl) 50 Mg Tablet, 50 MG PO Q6 Y for PAIN, #20 TAB Prov:JOVITA PENA PA-C 08/07/16 Ibuprofen* (Motrin*) 600 Mg Tab, 600 MG PO Q6H Y for PAIN AND OR ELEVATED TEMP, #30 TAB Prov:JOVITA PENA PA-C 08/07/16 Docusate Sodium* (Colace*) 100 Mg Capsule, 100 MG PO TID for 3 Days, #30 CAP Prov:HIEU JEAN 08/07/16 Hard Fat/Phenylephrine* (Anusol*) 1 Supp Supp, 1 SUPP WI Q6 for 3 Days, SUPP Prov:HIEU JEAN 08/07/16 Promethazine w/Codeine* (Phenergan w/Codeine* Syrup) 5 Ml Syrup, 5 ML PO Q4H Y for COUGH, #4 OZ Prov:SHAILESH SHELLEY PA-C 11/07/15 Azithromycin* (Zithromax*) 250 Mg Tablet, 250 MG PO .[place] DIRECTED, #6 TAB TAKE 500 MG (2 TABS) THE FIRST DAY THEN 250 MG (1 TAB) DAYS 2-5 Prov:SHAILESH SHELLEY PA-C 11/07/15 Cyclobenzaprine Hcl* (Cyclobenzaprine Hcl*) 10 Mg Tablet, 10 MG PO TID, #15 TAB Prov:HIEU JEAN 09/25/15 Tramadol HCl (Tramadol HCl) 50 Mg Tab, 50 MG PO Q4 Y for PAIN, #20 TAB Prov:HIEU JEAN 09/25/15 Guaifenesin-Dextromethorphan* (Robitussin* DM) 100MG/10MG/5ML Syrup, 5 ML PO Q6H Y for COUGH, #1 ML Prov:JOSE JUAN CRUZ NP 04/30/15 Azithromycin* (Zithromax*) 500 Mg Tablet, 1000 MG PO ONCE, #1 TAB Prov:JOSE JUAN CRUZ NP 04/30/15 Reported Medications Losartan Potassium* (Losartan Potassium*) 50 Mg Tablet, 50 MG PO DAILY, TAB 11/13/14 Hydroxyzine Hcl* (Hydroxyzine Hcl*) 25 Mg Tablet, 25 MG PO DAILY, TAB 11/13/14 Aspirin* (Aspirin* EC) 81 Mg Tablet.dr, 81 MG PO DAILY, TAB 11/13/14 Allergies Allergies: Coded Allergies: nitrofurantoin (Verified Allergy, Unknown, 02/11/17) phenazopyridine (Verified Allergy, Unknown, 02/11/17) prochlorperazine (Verified Allergy, Unknown, 02/11/17) PMhx/Soc History of Surgery: Yes (breast and head surgery) Anesthesia Reaction: No Hx Neurological Disorder: No Hx Respiratory Disorders: No Hx Cardiac Disorders: Yes (htn) Hx Psychiatric Problems: Yes (anxiety) Hx Miscellaneous Medical Probl: No Hx Alcohol Use: No Hx Substance Use: No Hx Tobacco Use: No Smoking Status: Never smoker Physical Exam Vitals Vital Signs Date Time Temp Pulse Resp B/P Pulse Ox O2 Delivery O2 Flow Rate FiO2 09/16/17 01:34 98.1 78 20 139/81 100 Physical Exam GENERAL: well-developed/well-nourished, in no apparent distress, non-toxic appearing HENT: NC/AT, bilateral tympanic membrane is normal with good cone of light, nares patent, oropharynx clear without exudates EYES: Conjunctiva normal, PERRLA, EOMI, no nystagmus noted NECK: Supple, no lymphadenopathy PULM: CTA bilaterally, no rales, rhonchi, or wheezing heard CV: Normal S1S2, RRR, good capillary refill GI: Soft, non-distended, normal bowel sounds, non-tender BACK: No midline tenderness, no masses, No CVAT EXT: No clubbing, cyanosis, or edema NEURO: Alert and orientated to person, place, and time. CN II-IIX intact. Gait and coordination were normal. 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 There is no evidence of any facial fractures. There was no evidence of intracranial bleeding or skull fracture. CT did not show any evidence of acute pathology. Patient has a normal neurological exam. ED patient was given North for pain, she had some improvement. Patient is neurovascular intact to be discharged home. I have discussed with patient to continue to follow-up with her primary care physician and to return to the ER for any worsening signs or symptoms. Departure Diagnosis: Primary Impression: Headache Additional Impression: Nasal contusion Condition: Stable Patient Instructions: Self-Care for Headaches, Nasal Contusion Referrals: ANGELA HANSON DO (PCP) PASHA PILLAI MD,KATHLEEN AGUILAR,BHARGAV Bo MD Additional Instructions: FOLLOW UP WITH YOUR PRIMARY CARE PHYSICIAN TOMORROW.Return to this facility if you are not improving as expected. Take all medicines as directed. Return to this facility if you are not improving as expected. JOVITA PENA PA-C Sep 16, 2017 03:41 JOVITA PENA PA-C Sep 16, 2017 03:41
[2017-09-16 03:49] VITALS: BP 130/89; PULSE 74; RESP 22
== END 2017-09-16 03:49 | disposition home or self-care (01) ==
LOC: FTE 01:23
DX: S00.33XA Contusion of nose, initial encounter (principal); I10 Essential (primary) hypertension; W22.8XXA Striking against or struck by other objects, initial encounter; Y92.9 Unspecified place or not applicable; Z79.82 Long term (current) use of aspirin
CPT/HCPCS: 70450

== ENCOUNTER 2017-10-05 10:57 | Emergency (ER) | payer MEDICARE, OTHER ==
[~2017-10-05] VITALS: Ht 167.6 cm; Wt 81.9 kg
[2017-10-05 11:00] VITALS: Ht 167.6 cm; Wt 81.9 kg
[2017-10-05] MEDS ORDERED: IPRATROPIUM (NEB) 0.5 MG/2.5 ML AMP NEB STA (12:05)
[2017-10-05] MEDS ORDERED: ALBUTEROL 0.083% (NEB) 2.5 MG/3 ML AMP NEB STA (12:05)
[2017-10-05 12:30] LABS: BASOPHILS % 0.5 % (0.0-2.0); EOSINOPHILS # 0.1 10^3/ul (0.0-0.5); EOSINOPHILS % 2.2 % (0.0-7.0); HEMATOCRIT 40.5 % (37.0-47.0); HEMOGLOBIN 13.5 g/dl (12.0-16.0); LYMPHOCYTES # 1.2 10^3/ul (0.8-2.9); LYMPHOCYTES % 18.9 % (15.0-51.0); MEAN CORPUSCULAR HEMOGLOBIN 32.5 pg (29.0-33.0); MEAN CORPUSCULAR HGB CONC 33.3 g/dl (32.0-37.0); MEAN CORPUSCULAR VOLUME 97.6 fl (82.0-101.0); MEAN PLATELET VOLUME 11.7 fl (7.4-10.4); MONOCYTE # 0.5 10^3/ul (0.3-0.9); MONOCYTES % 7.8 % (0.0-11.0); NEUTROPHIL # 4.4 10^3/ul (1.6-7.5); NEUTROPHILS % 70.4 % (39.0-77.0); PLATELET COUNT 218 10^3/UL (140-415); RED BLOOD COUNT 4.15 10^6/ul (4.20-5.40); RED CELL DISTRIBUTION WIDTH 12.4 % (11.5-14.5); WHITE BLOOD COUNT 6.3 10^3/ul (4.8-10.8)
[2017-10-05] MEDS ORDERED: MECLIZINE 12.5 MG TAB PO ONE (12:30)
[2017-10-05 12:53] LABS: ANION GAP 16 (8-16); BLOOD UREA NITROGEN 20 mg/dl (7-20); CALCIUM 9.2 mg/dl (8.4-10.2); CARBON DIOXIDE 29 mmol/L (21-31); CHLORIDE 100 mmol/L (97-110); CREATININE 0.81 mg/dl (0.44-1.00); GLUCOSE 84 mg/dl (70-220); POTASSIUM 5.1 mmol/L (3.5-5.1); SODIUM 140 mmol/L (135-144)
[2017-10-05 13:09] LABS: TROPONIN-I < 0.012 ng/ml (0.00-0.12)
[2017-10-05] MEDS ORDERED: IBUP800T25 PO (13:22)
[2017-10-05] MEDS ORDERED: ALBU18HF INHALATION (13:22)
[2017-10-05] MEDS ORDERED: FLUT9.9S NASAL (13:22)
[2017-10-05] MEDS ORDERED: MECL12.574 PO (13:22)
--- NOTE | 2017-10-05 13:26 | ERD ---
ER Documentation Chief Complaint Chief Complaint dizziness and SOB x 2 days HPI This is a 47-year-old female, smoking history presents to the emergency room with dizziness and shortness of breath. She describes nasal congestion, sinus congestion, dizziness that she describes as the room spinning and worse when she is standing up and moving her head from side to side. She denies any dysarthria, dysmetria or ataxia. The patient also describes a dry nonproductive cough for several days. She states this feels like pneumonia that she has had in the past. She also reports that she may have had a heart attack in the past but does not have any stents. She states this was around when she had delivery of her child. She denies any current cardiology follow- up or cardiac issues at this point. She denies any chest pain pleuritic pain or exertional symptoms. ROS All systems reviewed and are negative except as per history of present illness. Medications Home Meds Active Scripts Meclizine Hcl* (Antivert*) 12.5 Mg Tab, 12.5 MG PO Q6H Y for DIZZINESS, #20 TAB Prov:BERTIN HOLM MD 10/05/17 Ibuprofen* (Motrin*) 800 Mg Tab, 800 MG PO Q6H Y for PAIN AND OR ELEVATED TEMP, #30 TAB Prov:BERTIN HOLM MD 10/05/17 Fluticasone Propionate (Flonase Allergy Relief) 9.9 Ml [place].susp, 1 SPRAY NASAL BID, #1 BOTTLE TO EACH NOSTRIL Prov:BERTIN HOLM MD 10/05/17 Albuterol Sulfate* (Ventolin HFA*) 18 Gm Hfa.aer.ad, 2 PUFF INHALATION Q4H, #1 INHALER Prov:BERTIN HOLM MD 10/05/17 Naproxen* (Naprosyn*) 500 Mg Tablet, 500 MG PO BID, #30 TAB Prov:JOVITA PENA PA-C 09/16/17 Docusate Sodium* (Colace*) 100 Mg Capsule, 100 MG PO TID, #30 CAP Prov:CINDA DE LA CRUZ PA-C 03/10/17 Polyethylene Glycol* (Miralax*) 17 Gm Powd.pack, 17 GM PO DAILY, #10 Prov:CINDA DE LA CRUZ PA-C 03/10/17 Fluticasone Propionate (Flonase Allergy Relief) 9.9 Ml [place].susp, 2 SPRAY NASAL DAILY, #1 BOTTLE TO EACH NOSTRIL Prov:CINDA DE LA CRUZ PA-C 03/10/17 Naproxen* (Naprosyn*) 500 Mg Tablet, 500 MG PO BID Y for PAIN AND/OR INFLAMMATION, #30 TAB Prov:CINDA DE LA CRUZ PA-C 03/10/17 Pseudoephedrine HCl (Sinus 12 Hour) 120 Mg Tablet.er, 120 MG PO BID, #20 TAB Prov:CINDA DE LA CRUZ PA-C 03/10/17 Albuterol Sulfate* (Ventolin HFA*) 18 Gm Hfa.aer.ad, 2 PUFF INHALATION Q4H, #1 INHALER Prov:CINDA DE LA CRUZ PA-C 03/10/17 Ibuprofen* (Motrin*) 600 Mg Tab, 600 MG PO Q6H Y for PAIN AND OR ELEVATED TEMP, #30 TAB Prov:GIANLUCA RAMOS MD 02/11/17 Amoxicillin* (Amoxicillin*) 500 Mg Cap, 500 MG PO TID for 10 Days, CAP Prov:GIANLUCA RAMOS MD 02/11/17 Dextromethorphan Hb-Promethazine Hcl (Promethazine DM Syrup) 473 Ml Syrup, 10 ML PO Q6H Y for COUGH, #4 OZ Prov:HIEU JEAN 01/20/17 Albuterol Sulfate* (Ventolin HFA*) 18 Gm Hfa.aer.ad, 2 PUFF INHALATION Q4H, #1 INHALER Prov:WINSOME SCHULTZ MD 01/20/17 Ibuprofen* (Motrin*) 600 Mg Tab, 600 MG PO Q6, #15 TAB Prov:WINSOME SCHULTZ MD 01/20/17 Azithromycin* (Zithromax*) 250 Mg Tablet, 250 MG PO .[place] DIRECTED, #6 TAB TAKE 500 MG (2 TABS) THE FIRST DAY THEN 250 MG (1 TAB) DAYS 2-5 Prov:WINSOME SCHULTZ MD 01/20/17 Diphenhydramine Hcl* (Benadryl*) 50 Mg Cap, 50 MG PO Q6 Y for ITCHING, #15 CAP Prov:DAMARI ARGUETAChelsie TEAM [employer]ER 12/01/16 Fluconazole* (Diflucan*) 150 Mg Tablet, 150 MG PO ONCE, #1 TAB Prov:DAMARI ARGUETAChelsie TE[employer] 12/01/16 Ibuprofen* (Motrin*) 600 Mg Tab, 600 MG PO Q6, #30 TAB Prov:ALISSON DAVILA PA-C 10/28/16 Jorabvizenb-W-Ripkzzpdra Hb* (Guaifenesin* DM Syrup) 120 Ml Syrup, 10 ML PO Q4H Y for COUGH, #120 ML Prov:ALISSON DAVLIA PA-C 10/28/16 Azithromycin* (Zithromax*) 250 Mg Tablet, 250 MG PO .ZPACK DIRECTED, #6 TAB TAKE 500 MG (2 TABS) THE FIRST DAY THEN 250 MG (1 TAB) DAYS 2-5 Prov:ALISSON DAVILA PA-C 10/28/16 Tramadol HCl (Tramadol HCl) 50 Mg Tablet, 50 MG PO Q6 Y for PAIN, #20 TAB Prov:JOVITA PENA PA-C 08/07/16 Ibuprofen* (Motrin*) 600 Mg Tab, 600 MG PO Q6H Y for PAIN AND OR ELEVATED TEMP, #30 TAB Prov:JOVITA PENA PA-C 08/07/16 Docusate Sodium* (Colace*) 100 Mg Capsule, 100 MG PO TID for 3 Days, #30 CAP Prov:HIEU JEAN 08/07/16 Hard Fat/Phenylephrine* (Anusol*) 1 Supp Supp, 1 SUPP [place] Q6 for 3 Days, SUPP Prov:HIEU JEAN 08/07/16 Promethazine w/Codeine* (Phenergan w/Codeine* Syrup) 5 Ml Syrup, 5 ML PO Q4H Y for COUGH, #4 OZ Prov:SHAILESH SHELLEY PA-C 11/07/15 Azithromycin* (Zithromax*) 250 Mg Tablet, 250 MG PO .ZPACK DIRECTED, #6 TAB TAKE 500 MG (2 TABS) THE FIRST DAY THEN 250 MG (1 TAB) DAYS 2-5 Prov:SHAILESH SHELLEY PA-C 12/28/15 Cyclobenzaprine Hcl* (Cyclobenzaprine Hcl*) 10 Mg Tablet, 10 MG PO TID, #15 TAB Prov:HIEU JEAN 09/25/15 Tramadol HCl (Tramadol HCl) 50 Mg Tab, 50 MG PO Q4 Y for PAIN, #20 TAB Prov:HIEU JEAN 09/25/15 Guaifenesin-Dextromethorphan* (Robitussin* DM) 100MG/10MG/5ML Syrup, 5 ML PO Q6H Y for COUGH, #1 ML Prov:JOSE JUAN CRUZ NP 04/30/15 Azithromycin* (Zithromax*) 500 Mg Tablet, 1000 MG PO ONCE, #1 TAB Prov:JOSE JUAN CRUZ NP 04/30/15 Reported Medications Losartan Potassium* (Losartan Potassium*) 50 Mg Tablet, 50 MG PO DAILY, TAB 11/13/14 Hydroxyzine Hcl* (Hydroxyzine Hcl*) 25 Mg Tablet, 25 MG PO DAILY, TAB 11/13/14 Aspirin* (Aspirin* EC) 81 Mg Tablet.dr, 81 MG PO DAILY, TAB 11/13/14 Allergies Allergies: Coded Allergies: nitrofurantoin (Verified Allergy, Unknown, 02/11/17) phenazopyridine (Verified Allergy, Unknown, 02/11/17) prochlorperazine (Verified Allergy, Unknown, 02/11/17) PMhx/Soc History of Surgery: Yes (breast and head surgery) Anesthesia Reaction: No Hx Neurological Disorder: No Hx Respiratory Disorders: Yes (PNEUMONIA) Hx Cardiac Disorders: Yes (htn, [place]) Hx Psychiatric Problems: No (anxiety) Hx Miscellaneous Medical Probl: No Hx Alcohol Use: No Hx Substance Use: No Hx Tobacco Use: Yes Smoking Status: Current every day smoker FmHx Family History: No diabetes Physical Exam Vitals Vital Signs Date Time Temp Pulse Resp B/P Pulse Ox O2 Delivery O2 Flow Rate FiO2 10/05/17 12:28 65 20 151/101 98 Room Air 10/05/17 12:18 65 18 96 21 10/05/17 11:00 97.6 100 18 157/87 99 Physical Exam General: Well developed, well nourished, no acute distress Head: Normocephalic, atraumatic. Eyes: Pupils equally reactive, EOM intact ENT: Moist mucous membranes Neck: Supple, no lymphadenopathy Respiratory: Lungs clear bilaterally, no distress Cardiovascular: RRR, no murmurs, rubs, or gallops Abdominal: Soft, non-tender, non-distended, no peritoneal signs : Deferred MSK: No edema, no unilateral swelling, 5/5 strength Neurologic: Alert and oriented, moving all extremities, normal speech, no focal weakness, no cerebellar signs Skin: No rash Psych: Normal mood Result Diagram: 10/05/17 1226 10/05/17 1226 Results 24 hrs Laboratory Tests Test 10/05/17 12:26 White Blood Count 6.310^3/ul Red Blood Count 4.1510^6/ul Hemoglobin 13.5g/dl Hematocrit 40.5% Mean Corpuscular Volume 97.6fl Mean Corpuscular Hemoglobin 32.5pg Mean Corpuscular Hemoglobin Concent 33.3g/dl Red Cell Distribution Width 12.4% Platelet Count 33603^3/UL Mean Platelet Volume 11.7fl Neutrophils % 70.4% Lymphocytes % 18.9% Monocytes % 7.8% Eosinophils % 2.2% Basophils % 0.5% Nucleated Red Blood Cells % 0.0/100WBC Neutrophils # 4.410^3/ul Lymphocytes # 1.210^3/ul Monocytes # 0.510^3/ul Eosinophils # 0.110^3/ul Basophils # 0.010^3/ul Nucleated Red Blood Cells # 0.010^3/ul Sodium Level 140mmol/L Potassium Level 5.1mmol/L Chloride Level 100mmol/L Carbon Dioxide Level 29mmol/L Anion Gap 16 Blood Urea Nitrogen 20mg/dl Creatinine 0.81mg/dl Glucose Level 84mg/dl Calcium Level 9.2mg/dl Troponin I < 0.012ng/ml Current Medications Medications (Trade) Dose Ordered Sig/Bobby Route PRN Reason Start Time Stop Time Status Last Admin Dose Admin Albuterol (Proventil 0.083% (Neb)) 2.5 mg ONCE STAT NEB 10/05/17 12:05 10/05/17 12:07 DC 10/05/17 12:18 Ipratropium Robert (Atrovent 0.02% (Neb)) 0.5 mg ONCE STAT NEB 10/05/17 12:05 10/05/17 12:07 DC 10/05/17 12:18 Meclizine HCl (Antivert) 25 mg ONCE ONCE PO 10/05/17 12:30 10/05/17 12:31 DC 10/05/17 12:26 Procedures/MDM EKG, MONITORS, & DIAGNOSTIC IMAGING: EKG: I reviewed and interpreted a 12-lead EKG. Rhythm: Normal sinus rhythm Ectopy: None Intervals: No abnormalities ST segments: No elevations or depressions T waves: No contiguous inversions Chest x-ray: I reviewed and interpreted a 1 view of the chest Mediastinum: No enlargement Cardiac silhouette: No cardiomegaly Airspace: Clear lung powers bilaterally without evidence of pneumothorax Bones: No evidence of fracture LAB INTERPRETATION: Negative troponin, no leukocytosis MEDICAL DECISION MAKING: The patient's presentation and symptoms are most consistent with likely viral URI, acute bronchitis. The patient's vertigo seems peripheral and likely secondary to sinus congestion. She has no signs or symptoms concerning for central vertigo or stroke. No indication for CT brain is no signs or symptoms concerning for increased intracranial pressure. The patient describes a history of potential heart attack the looking through the patient's electronic medical record I cannot corroborate this. The patient does not have a stent she does not have chest pain and she does not have exertional symptoms. I do not believe this is cardiogenic in nature but given her verbal history of believe an EKG and propria. No evidence of heart failure. Smoking Cessation: I had a greater than 3 minute conversation with the patient regarding smoking cessation. We discussed multiple alternatives. ER COURSE: The patient was given a breathing treatment and meclizine with improved symptoms. Her laboratory testing and diagnostic imaging showed no evidence of pneumonia or cardiac ischemia. I believe symptom control as an outpatient would be reasonable. No indication for antibiotics. The patient should follow- up with her primary care physician. It should also be noted that the patient has many visits to the emergency room for myriad complaints. She was advised of establishing a regular primary care physician. I kept the patient and/or family informed of laboratory and diagnostic imaging results throughout the emergency room course. DISPOSITION PLAN: We discussed follow up with the patient's primary care doctor within 24 to 48 hours as needed. We also discussed return to the emergency room for worsening symptoms or worsening condition. Outpatient referral: [None required] Discharge Medications: Meclizine, Flonase, albuterol, Motrin Departure Diagnosis: Primary Impression: Acute bronchitis Bronchitis organism: unspecified organism Qualified Code: J20.9 - Acute bronchitis, unspecified organism Additional Impression: Peripheral vertigo Laterality: unspecified laterality Qualified Code: H81.399 - Peripheral vertigo, unspecified laterality Condition: Stable Patient Instructions: Acute Bronchitis, Smoking Cessation, Vertigo, Unspecified Additional Instructions: Call your primary care doctor TOMORROW for an appointment during the next 1 WEEK.Tell the secretary to the vice president that you were referred from this facility.See the doctor sooner or return here if your condition worsens before your appointment time. BERTIN HOLM MD Oct 05, 2017 13:26
[2017-10-05 13:30] VITALS: BP 126/93; PULSE 63; RESP 16; TEMP 98.2
--- NOTE | 2017-10-05 13:51 | RADRPT ---
PROCEDURE: XR Chest. CLINICAL INDICATION: Chest pain TECHNIQUE: Single AP view of the chest was obtained COMPARISON: 01/20/2017 FINDINGS: The heart, lungs and osseous structures are unremarkable. RPTAT: AA IMPRESSION: No acute disease. Vik Krishnan Physician Date Time Electronically viewed and signed by Vik Krishnan, Physician on 10/05/2017 13:51 MS/
== END 2017-10-05 13:30 | disposition home or self-care (01) ==
LOC: E/R 10:57
DX: J20.9 Acute bronchitis, unspecified (principal); H81.399 Other peripheral vertigo, unspecified ear; I10 Essential (primary) hypertension; F17.210 Nicotine dependence, cigarettes, uncomplicated; Z79.82 Long term (current) use of aspirin
CPT/HCPCS: 36415; 71010; 80048; 84484; 85025; 93005; 94664

== ENCOUNTER 2017-12-22 11:59 | Emergency (ER) | END 2017-12-22 13:24 | disposition home or self-care (01) ==

== ENCOUNTER 2018-07-18 08:15 | Emergency (ER) | END 2018-07-18 10:19 | disposition home or self-care (01) ==

== ENCOUNTER 2018-07-26 08:49 | Emergency (ER) | END 2018-07-26 10:41 | disposition home or self-care (01) ==

== ENCOUNTER 2018-10-15 08:37 | Emergency (ER) | END 2018-10-15 10:43 | disposition home or self-care (01) ==

== ENCOUNTER 2019-05-16 08:52 | Emergency (ER) | payer MEDICARE, OTHER ==
[~2019-05-16] VITALS: Ht 170.2 cm; Wt 85.0 kg
[~2019-05-16 08:52] MED LIST changes: +ACET-2047 PO; +ALBU2TAB5 PO; +ALBU4TAB4 PO; -AMOX500C2 PO; -ANR PR; -ASPI-664 PO; +ASPI-817 PO; +AZIT250T PO; -AZIT250T94 PO; -AZIT500T3 PO; -BEN50 PO; +BENZ-6 PO; +CETI10CA PO; -CYCL-319 PO; -D-ME473S18 PO; -DOCU-144 PO; -FLUC150T17 PO; -GUAI120S26 PO; +GUAI5SYR2 PO; -HYDR-3011 PO; -IBUP-1542 PO; +IBUP800T48 PO; +LORA1TAB54 PO; +LOSA50TA14 PO; -LOSA50TA6 PO; +MECL12.574 PO; -NAPR-260 PO; -POLY17PO6 PO; +PRED20TA PO; +PROM5SYR2 PO; -PROM6.25 PO; -TRAM50TA2 PO; -UDROBDM PO; -[UNRECOGNIZED DRUG - CODE] PO
[2019-05-16 09:02] VITALS: BP 173/105; PULSE 87; RESP 20; Ht 170.2 cm; Wt 85.0 kg
[2019-05-16] MEDS ORDERED: BENZ-6 PO (09:47)
[2019-05-16] MEDS ORDERED: PROM6.2515 PO (09:47)
[2019-05-16] MEDS ORDERED: AZIT250T PO (09:47)
--- NOTE | 2019-05-16 10:09 | ERD ---
ER Documentation Chief Complaint Chief Complaint COUGH, CHEST CONGESTION, FOR 1 WEEK, FEELS DIZZY; AMB. WITH STEADY GAIT. HPI 49-year-old female presenting with cough and congestion for the last week. She states that she has been drinking cough syrup with no alleviation she feels that her cough is coming more productive. She has a history of bronchitis. Denies any chest pain. Denies fevers. Medical history of hypertension. Allergies to Macrobid and Compazine. Surgical history breast surgery. Social history denies ROS All systems reviewed and are negative except as per history of present illness. Medications Home Meds Active Scripts Azithromycin* (Zithromax*) 250 Mg Tablet, 250 MG PO .ZPACK DIRECTED, #6 TAB TAKE 500 MG (2 TABS) THE FIRST DAY THEN 250 MG (1 TAB) DAYS 2-5 Prov:MELISSA BECK PA-C 05/16/19 Promethazine Hcl* (Promethazine Hcl* Syrup) 6.25 Mg/5 Ml Syrup, 6.25 MG PO Q6H PRN for COUGH, #100 ML Prov:MELISSA BECK PA-C 05/16/19 Benzonatate* (Tessalon Perle*) 100 Mg Capsule, 100 MG PO Q8H PRN for COUGH, #30 CAP Prov:MELISSA BECK PA-C 05/16/19 Benzonatate* (Tessalon Perle*) 100 Mg Capsule, 100 MG PO Q8H PRN for COUGH, #20 CAP Prov:ALISSON DAVILA PA-C 10/15/18 Albuterol Sulfate* (Albuterol Sulfate*) 2 Mg Tablet, 2 MG PO TID, #21 TAB Prov:ALISSON DAVILA PA-C 10/15/18 Cetirizine Hcl* (Zyrtec*) 10 Mg Capsule, 10 MG PO DAILY, #14 TAB.CHEW Prov:CINDA DE LA CRUZ PA-C 07/26/18 Guaifenesin-Dextromethorphan* (Robitussin* DM) 100MG/10MG/5ML Syrup, 10 ML PO Q6H PRN for COUGH for 5 Days, ML Prov:CINDA DE LA CRUZ PA-C 07/26/18 Albuterol Sulfate* (Albuterol Sulfate*) 4 Mg Tablet, 4 MG PO TID for 14 Days, TAB Prov:CINDA DE LA CRUZ PA-C 07/26/18 Albuterol Sulfate* (Albuterol Sulfate*) 4 Mg Tablet, 4 MG PO TID PRN for COUGH, #14 TAB Prov:SILVANO ERICKSON 07/18/18 Prednisone* (Prednisone*) 20 Mg Tab, 60 MG PO DAILY for 4 Days, TAB Prov:SILVANO ERICKSON 07/18/18 Azithromycin* (Zithromax*) 250 Mg Tablet, 250 MG PO .ZPACK DIRECTED, #6 TAB TAKE 500 MG (2 TABS) THE FIRST DAY THEN 250 MG (1 TAB) DAYS 2-5 Prov:SILVANO ERICKSON 07/18/18 Loratadine/Pseudoephedrine* (Claritin-D* 12 Hr) 5-120 Mg Tab.er.12h, 1 TAB PO Q12, #20 TAB.SA Prov:JOVITA PENA PA-C 12/22/17 Acetaminophen* (Acetaminophen*) 650 Mg Tablet, 650 MG PO Q6H PRN for PAIN AND OR ELEVATED TEMP, #30 TAB Prov:JOVITA PENA PA-C 12/22/17 Promethazine HCl/Codeine (Prometh-Codein 6.25-10 mg/5 ml) 5 Ml Syrup, 5 ML PO Q6, #60 Prov:JOVITA PENA PA-C 12/22/17 Azithromycin* (Zithromax*) 250 Mg Tablet, 250 MG PO .ZPACK DIRECTED, #6 TAB TAKE 500 MG (2 TABS) THE FIRST DAY THEN 250 MG (1 TAB) DAYS 2-5 Prov:JOVITA PENA PA-C 12/22/17 Meclizine Hcl* (Antivert*) 12.5 Mg Tab, 12.5 MG PO Q6H PRN for DIZZINESS, #20 TAB Prov:EBRTIN HOLM MD 10/05/17 Ibuprofen* (Motrin*) 800 Mg Tab, 800 MG PO Q6H PRN for PAIN AND OR ELEVATED TEMP, #30 TAB Prov:BERTIN HOLM MD 10/05/17 Fluticasone Propionate (Flonase Allergy Relief) 9.9 Ml [place].susp, 1 SPRAY NASAL BID, #1 BOTTLE TO EACH NOSTRIL Prov:BERTIN HOLM MD 10/05/17 Albuterol Sulfate* (Ventolin HFA*) 18 Gm Hfa.aer.ad, 2 PUFF INHALATION Q4H, #1 INHALER Prov:BERTIN HOLM MD 10/05/17 Reported Medications Losartan Potassium* (Losartan Potassium*) 50 Mg Tablet, 50 MG PO DAILY, TAB 11/13/14 Aspirin* (Aspirin* EC) 81 Mg Tablet.dr, 81 MG PO DAILY, TAB 11/13/14 Allergies Allergies: Coded Allergies: nitrofurantoin (Verified Allergy, Unknown, 02/11/17) phenazopyridine (Verified Allergy, Unknown, 02/11/17) prochlorperazine (Verified Allergy, Unknown, 02/11/17) PMhx/Soc History of Surgery: No Anesthesia Reaction: No Hx Neurological Disorder: No Hx Respiratory Disorders: No Hx Cardiac Disorders: No Hx Psychiatric Problems: No Hx Miscellaneous Medical Probl: No Hx Alcohol Use: No Hx Substance Use: No Hx Tobacco Use: No Smoking Status: Current every day smoker FmHx Family History: No diabetes, No coronary disease, No other Physical Exam Vitals Vital Signs Date Temp Pulse Resp B/P (MAP) Pulse Ox O2 O2 Flow FiO2 Time Delivery Rate 05/16/19 98.0 87 20 173/105 98 09:02 (127) Physical Exam GENERAL: The patient is well-appearing, well-nourished, in no acute distress HEENT: Atraumatic. Conjunctivae are pink. Pupils equal, round, and reactive to light. There is no scleral icterus. Tympanic membranes clear bilaterally. Oropharynx clear. NECK: C-spine is soft and supple. There is no meningismus. There is no cervical lymphadenopathy. CHEST: Clear to auscultation bilaterally. There are no rales, wheezes or rhon chi. HEART: Regular rate and rhythm. No murmurs, clicks, rubs or gallops. Procedures/MDM DIAGNOSTIC IMAGING REPORT Patient: ROBB VERNON : 1970 Age: 49 Sex: F MR #: [id number] DOS: 05/16/19 0918 Ordering MD: NAKUL BECK PA-C Location: [facility] Room/Bed: PROCEDURE: XR Chest. CLINICAL INDICATION: Cough TECHNIQUE: AP erect chest was obtained COMPARISON: Chest 01/20/2017 FINDINGS: Heart normal limits in size. No evidence of pulmonary vascular congestion acute lung consolidation pleural effusions and pneumothorax. IMPRESSION: No evidence of acute cardiopulmonary disease. MDM: 49 yr old female complaining of cough. I have low suspicion for pneumonia. I have low suspicion for respiratory distress or hypoxia. Patient is d ischarged with supportive medications and told to follow-up with primary care within 1 to 2 days for close evaluation. I have low suspicion for respiratory distress or cardiac abnormalities. Patient is discharged and told to follow-up with primary care. All questions answered at discharge Departure Diagnosis: Primary Impression: Cough Condition: Stable Patient Instructions: Cough, Chronic, Uncertain Cause, (Adult) Referrals: EMANUEL ACEVEDO (PCP) Additional Instructions: FOLLOW UP WITH YOUR PRIMARY CARE PHYSICIAN TOMORROW.Return to this facility if you are not improving as expected. MELISSA BECK PA-C May 16, 2019 10:09
== END 2019-05-16 09:58 | disposition home or self-care (01) ==
LOC: FTE 08:52
DX: R05 Cough (principal); F17.210 Nicotine dependence, cigarettes, uncomplicated; Z79.82 Long term (current) use of aspirin
CPT/HCPCS: 71045

== ENCOUNTER 2019-05-22 18:47 | Inpatient (IN) | payer MEDICARE, OTHER ==
[~2019-05-22] VITALS: Ht 167.6 cm; Wt 81.8 kg
[~2019-05-22 18:47] MED LIST changes: +PROM6.2515 PO
--- NOTE | 2019-05-22 23:13 | ERD ---
ER Documentation Chief Complaint Chief Complaint dizziness/sob HPI The patient is a 49-year-old female, resenting to the ER because of dizziness, right-sided headache for 1 week. He had a cold more than a week ago, was seen in the ER 6 days ago and treated with Zithromax and felt better. She feels as if she is going to pass out, complains of blurred vision, dyspnea on exertion, orthopnea for the last 4days denies syncope, near syncope, neck pain, chest pain, abdominal pain, vomiting, dysuria, diarrhea. She smokes and drinks, denies illicit drug Past medical history: Hypertension, CAD, history of [place] 10 years ago Past surgical history: Bilateral breast benign tumor ROS All systems reviewed and are negative except as per history of present illness. Medications Home Meds Active Scripts Azithromycin* (Zithromax*) 250 Mg Tablet, 250 MG PO .ZPACK DIRECTED, #6 TAB TAKE 500 MG (2 TABS) THE FIRST DAY THEN 250 MG (1 TAB) DAYS 2-5 Prov:MELISSA BECK PA-C 05/16/19 Promethazine Hcl* (Promethazine Hcl* Syrup) 6.25 Mg/5 Ml Syrup, 6.25 MG PO Q6H PRN for COUGH, #100 ML Prov:MELISSA BECK PA-C 05/16/19 Benzonatate* (Tessalon Perle*) 100 Mg Capsule, 100 MG PO Q8H PRN for COUGH, #30 CAP Prov:MELISSA BECK PA-C 05/16/19 Benzonatate* (Tessalon Perle*) 100 Mg Capsule, 100 MG PO Q8H PRN for COUGH, #20 CAP Prov:ALISSON DAVILA PA-C 10/15/18 Albuterol Sulfate* (Albuterol Sulfate*) 2 Mg Tablet, 2 MG PO TID, #21 TAB Prov:ALISSON DAVILA PA-C 10/15/18 Cetirizine Hcl* (Zyrtec*) 10 Mg Capsule, 10 MG PO DAILY, #14 TAB.CHEW Prov:CINDA DE LA CRUZ PA-C 07/26/18 Guaifenesin-Dextromethorphan* (Robitussin* DM) 100MG/10MG/5ML Syrup, 10 ML PO Q6H PRN for COUGH for 5 Days, ML Prov:DOROTHYCINDA AGUAYOC 07/26/18 Albuterol Sulfate* (Albuterol Sulfate*) 4 Mg Tablet, 4 MG PO TID for 14 Days, TAB Prov:JALEN DE LA CRUZCAITY MENON-C 07/26/18 Albuterol Sulfate* (Albuterol Sulfate*) 4 Mg Tablet, 4 MG PO TID PRN for COUGH, #14 TAB Prov:SILVANO ERICKSON 07/18/18 Prednisone* (Prednisone*) 20 Mg Tab, 60 MG PO DAILY for 4 Days, TAB Prov:SILVANO ERICKSON 07/18/18 Azithromycin* (Zithromax*) 250 Mg Tablet, 250 MG PO .ZPACK DIRECTED, #6 TAB TAKE 500 MG (2 TABS) THE FIRST DAY THEN 250 MG (1 TAB) DAYS 2-5 Prov:SILVANO ERICKSON 07/18/18 Loratadine/Pseudoephedrine* (Claritin-D* 12 Hr) 5-120 Mg Tab.er.12h, 1 TAB PO Q12, #20 TAB.SA Prov:JOVITA PENAC 12/22/17 Acetaminophen* (Acetaminophen*) 650 Mg Tablet, 650 MG PO Q6H PRN for PAIN AND OR ELEVATED TEMP, #30 TAB Prov:JOVITA PENA-C 12/22/17 Promethazine HCl/Codeine (Prometh-Codein 6.25-10 mg/5 ml) 5 Ml Syrup, 5 ML PO Q6, #60 Prov:JOVITA PENA-C 12/22/17 Azithromycin* (Zithromax*) 250 Mg Tablet, 250 MG PO .ZPACK DIRECTED, #6 TAB TAKE 500 MG (2 TABS) THE FIRST DAY THEN 250 MG (1 TAB) DAYS 2-5 Prov:JOVITA PENA-C 12/22/17 Meclizine Hcl* (Antivert*) 12.5 Mg Tab, 12.5 MG PO Q6H PRN for DIZZINESS, #20 TAB Prov:BERTIN HOLM MD 10/05/17 Ibuprofen* (Motrin*) 800 Mg Tab, 800 MG PO Q6H PRN for PAIN AND OR ELEVATED TEMP, #30 TAB Prov:BERTIN HOLM MD 10/05/17 Fluticasone Propionate (Flonase Allergy Relief) 9.9 Ml [place].susp, 1 SPRAY NASAL BID, #1 BOTTLE TO EACH NOSTRIL Prov:BERTIN HOLM MD 10/05/17 Albuterol Sulfate* (Ventolin HFA*) 18 Gm Hfa.aer.ad, 2 PUFF INHALATION Q4H, #1 INHALER Prov:BERTIN HOLM MD 10/05/17 Reported Medications Losartan Potassium* (Losartan Potassium*) 50 Mg Tablet, 50 MG PO DAILY, TAB 11/13/14 Aspirin* (Aspirin* EC) 81 Mg Tablet.dr, 81 MG PO DAILY, TAB 11/13/14 Allergies Allergies: Coded Allergies: nitrofurantoin (Verified Allergy, Unknown, 02/11/17) phenazopyridine (Verified Allergy, Unknown, 02/11/17) prochlorperazine (Verified Allergy, Unknown, 02/11/17) PMhx/Soc History of Surgery: Yes (BREAST, HEAD/SCALP) Anesthesia Reaction: No Hx Neurological Disorder: No Hx Respiratory Disorders: No Hx Cardiac Disorders: Yes (HTN) Hx Psychiatric Problems: No Hx Miscellaneous Medical Probl: No Hx Alcohol Use: Yes (OOC) Hx Substance Use: No Hx Tobacco Use: Yes Physical Exam Vitals Vital Signs Date Temp Pulse Resp B/P (MAP) Pulse Ox O2 O2 Flow FiO2 Time Delivery Rate 05/23/19 63 16 147/95 97 Room Air 02:01 (112) 05/22/19 97.7 70 18 157/92 98 18:55 (113) Physical Exam Const: No acute distress. Head: Atraumatic. Eyes: Normal Conjunctiva. ENT: Normal External Ears, Nose and Mouth. Neck: Full range of motion. No meningismus. Resp: Clear to auscultation bilaterally. Cardio: Regular rate and rhythm. Abd: Soft, non distended, normal bowel sounds, non tender. Skin: No petechiae or rashes. Back: No midline or flank tenderness. Ext: No cyanosis, or edema. Neur: Awake and alert. No focal deficit Psych: Normal Mood and Affect. Result Diagram: 05/22/19 2335 05/22/19 2335 Results 24 hrs Laboratory Tests Test 05/22/19 23:34 05/22/19 23:35 05/22/19 23:44 05/22/19 23:45 Urine Opiates Negative Screen Urine Barbiturates Negative Urine Amphetamines Negative Screen Urine Negative Benzodiazepines Screen Urine Cocaine Negative Screen Urine Cannabinoids Negative White Blood Count 7.1 10^3/ul Red Blood Count 4.36 10^6/ul Hemoglobin 13.7 g/dl Hematocrit 41.2 % Mean Corpuscular 94.5 fl Volume Mean Corpuscular 31.4 pg Hemoglobin Mean Corpuscular 33.3 g/dl Hemoglobin Concent Red Cell 12.6 % Distribution Width Platelet Count 236 10^3/UL Mean Platelet 12.0 fl Volume Immature 0.300 % Granulocytes % Neutrophils % 60.7 % Lymphocytes % 22.4 % Monocytes % 9.7 % Eosinophils % 6.2 % Basophils % 0.7 % Nucleated Red Blood 0.0 /100WBC Cells % Immature 0.020 10^3/ul Granulocytes # Neutrophils # 4.3 10^3/ul Lymphocytes # 1.6 10^3/ul Monocytes # 0.7 10^3/ul Eosinophils # 0.4 10^3/ul Basophils # 0.1 10^3/ul Nucleated Red Blood 0.0 10^3/ul Cells # Prothrombin Time 12.5 Sec Prothrombin Time 1.0 Ratio INR International 0.92 Normalized Ratio Activated 34.4 Sec Partial Thromboplas t Time D-Dimer 295.82 ng/ml D-Dimer Comment Sodium Level 136 mmol/L Potassium Level 4.2 mmol/L Chloride Level 98 mmol/L Carbon Dioxide 25 mmol/L Level Anion Gap 13 Blood Urea Nitrogen 32 mg/dl Creatinine 0.98 mg/dl Est Glomerular > 60 mL/min Filtrat Rate mL/min Glucose Level 114 mg/dl Calcium Level 9.9 mg/dl Magnesium Level 2.2 mg/dl Total Bilirubin 0.4 mg/dl Direct Bilirubin 0.00 mg/dl Indirect Bilirubin 0.4 mg/dl Aspartate Amino 31 IU/L Transf (AST/SGOT) Alanine 24 IU/L Aminotransferase (A LT/SGPT) Alkaline 87 IU/L Phosphatase Troponin I < 0.012 ng/ml B-Type Natriuretic < 11 PG/ML Peptide Total Protein 8.6 g/dl Albumin 4.8 g/dl Globulin 3.80 g/dl Albumin/Globulin 1.26 Ratio Ethyl Alcohol Level < 10.0 mg/dl Bedside Urine pH 5.5 (LAB) Bedside Urine 1+ Protein (LAB) Bedside Urine Negative Glucose (UA) Bedside Urine 1+ Ketones (LAB) Bedside Urine Blood Trace-lysed Bedside Urine Negative Nitrite (LAB) Bedside Urine Trace Leukocyte Esterase (L POC Beta HCG, NEGATIVE Qualitative Current Medications Medications Dose Sig/Bobby Start Time Status Last (Trade) Ordered Route PRN Stop Time Admin Dose Reason Admin Sodium 500 ml @ Q1H ONCE 05/23/19 DC 05/23/19 Chloride 500 mls/hr IV 01:00 01:03 05/23/19 01:59 IV Flush 3 ml PER 05/23/19 (NS 3 ml) PROTOCOL IV 03:00 Ondansetron 4 mg Q6H PRN 05/23/19 HCl (Zofran IV 03:00 Inj) NAUSEA/VOMITI NG 650 mg Q6H PRN 05/23/19 Acetaminophen PO .PAIN 1-3 03:00 (Tylenol OR TEMP Tab) Docusate 100 mg Q12H PRN 05/23/19 Sodium PO 03:00 (Colace) .CONSTIPATION Bisacodyl 5 mg DAILY PRN 05/23/19 (Dulcolax) PO 03:00 .CONSTIPATION Sodium 500 ml @ Q1H ONCE 05/23/19 Chloride 500 mls/hr IV 03:00 05/23/19 03:59 Procedures/[place] [id number] Radiology Main Line: [phone] DIAGNOSTIC IMAGING REPORT Patient: ROBB VERNON : 1970 Age: 49 Sex: F MR #: [id number] DOS: 05/22/19 2324 Ordering MD: BHARGAV PEACOCK MD Location: E/R Room/Bed: PROCEDURE: CT BRAIN WITHOUT CONTRAST CLINICAL INDICATION: 49-year-old female with dizziness. TECHNIQUE: The study was performed utilizing [employer] MageT 64-slice CT [facility]. Direct axial sections were obtained from the foramen magnum to the vertex without the use of intravenous contrast material. Sagittal and coronal reformations were obtained. One or more the following dose reduction techniques were utilized: automated exposure control, adjustment of the mA and/or kV according to patient's size and/or use of iterative reconstruction technique. DICOM images are available. The images were viewed on a PACS workstation. CTD/vol = 38.7 mGy; Total Exam DLP = 634.23 mGy.cm. COMPARISON: CT brain September 16, 2017. FINDINGS: There is mild prominence of the sulci and cisternal spaces consistent with diffuse volume loss. Otherwise, the ventricles have a normal shape and position. There is no evidence for mass effect or midline shift. There are no intracranial areas of abnormal attenuation. There is no evidence for acute intra or extra-axial blood. The bony calvarium is intact. The partially visualized paranasal sinuses and mastoid air cells are without significant abnormal soft tissue. IMPRESSION: Mild diffuse volume loss. .Jb Jain MD, MD Date Time Electronically viewed and signed by .Jb Jain MD, MD on 05/23/2019 01:26 .M/ CC: BHARGAV PEACOCK MD [id number] [place] [id number] Radiology Main Line: [phone] DIAGNOSTIC IMAGING REPORT Patient: ROBB VERNON : 1970 Age: 49 Sex: F MR #: [id number] DOS: 05/22/19 2324 Ordering MD: BHARGAV PEACOCK MD Location: E/R Room/Bed: PROCEDURE: CHEST - 1 VIEW CLINICAL INDICATION: 49-year-old female with shortness of breath. TECHNIQUE: A single frontal AP portable view of the chest was performed. The images were reviewed on a PACS workstation. COMPARISON: CHEST 05/16/2019; CHEST 10/15/2018; RASHAD CHEST 01/20/2017 FINDINGS: The cardiomediastinal silhouette has a normal appearance. There is no evidence for an infiltrate. There is no evidence for congestive heart failure. There is no evidence for pneumothorax. The osseous structures are intact. IMPRESSION: No evidence for active cardiopulmonary disease. .Jb Jain MD, Date Time Electronically viewed and signed by .Jb Jain MD, MD on 05/23/2019 01:28 .M/ CC: BHARGAV PEACOCK MD [phone] EKG: Read by emergency physician Rate/Rhythm: Normal Sinus Rhythm 67 beats/min QRS, ST, T-waves: No ST elevation, no T inversion Impression: Normal EKG MEDICAL MAKING DECISION: The patient is a 49-year-old female, presenting with acute presyncope, was treated with Antivert 25 mg p.o. for dizziness and 500 mm of normal saline for dehydration. She still did not feel better and still feels as if she is going to pass out The differential diagnoses considered include but are not limited to dehydration, electrolyte imbalance, arrhythmogenic right ventricular dysplasia, Brugada syndrome, left ventricular hypertrophy, pulmonary embolism, QT abnormality, Pihd-[id number]-Vbpap. Departure Diagnosis: Primary Impression: Pre-syncope Additional Impression: Dehydration Condition: Stable Comments I discussed the findings with the patient. I notified the patient with Dr. Franklin via [employer] at 2:25 am, who was made aware of the lab, the treatment, the patient condition. The patient is admitted to [facility] Disclaimer: Inadvertent spelling and grammatical errors are likely due to EHR /dictation software use and do not reflect on the overall quality of patient care. Also, please note that the electronic time recorded on this note does not necessarily reflect the actual time of the patient encounter. BHARGAV PEACOCK MD May 22, 2019 23:13
[2019-05-23] MEDS ORDERED: SOD CHLORIDE 0.9% 500 ML IV ONE ×2 (01:00→03:00)
[2019-05-23] MEDS ORDERED: NACL 0.9% 3 ML SYG IV SCH (03:00)
[2019-05-23] MEDS: ACETAMINOPHEN 325 MG TAB PO PRN ×3 (03:13→21:43)
[2019-05-23] MEDS: ONDANSETRON 4 MG INJ IV PRN ×2 (03:13→10:36)
[2019-05-23] MEDS ORDERED: OMEP20CA16 PO (03:24)
[2019-05-23] MEDS ORDERED: HYDR-842 PO (03:24)
[2019-05-23] MEDS ORDERED: ALBU2TAB5 PO (03:24)
[2019-05-23] MEDS ORDERED: LOSA25TA12 PO (03:24)
[2019-05-23] MEDS ORDERED: AMLO-145 PO (03:24)
[2019-05-23 05:40] VITALS: BP 141/79; PULSE 57; RESP 17
[2019-05-23] MEDS ORDERED: hydrALAzine 20 MG INJ IV PRN (06:00)
[2019-05-23] MEDS ORDERED: ALBUTEROL 0.083% (NEB) 2.5 MG/3 ML AMP HHN PRN (06:00)
[2019-05-23 06:04] VITALS: Ht 167.6 cm; Wt 81.8 kg
[2019-05-23 07:25] VITALS: BP 130/82; PULSE 68; RESP 19
[2019-05-23 11:01] VITALS: BP 132/86; PULSE 60; RESP 19
[2019-05-23] MEDS ORDERED: NITROGLYCERIN (SL) 0.4 MG TAB SL PRN (15:30)
[2019-05-23 15:34] VITALS: BP 140/84; PULSE 58; RESP 19
--- NOTE | 2019-05-23 16:06 | HP ---
Date/Time of Note Date/Time of Note DATE: 05/23/19 TIME: 16:06 Assessment/Plan VTE Prophylaxis Risk score (from Ns)>0 risk: 1 SCD applied (from Ns): No SCD contraindicated: low risk/ambulating Pharmacological prophylaxis: LMWH Lines/Catheters IV Catheter Type (from Nrs): Peripheral IV Urinary Cath still in place: No Assessment/Plan Hospital Course 1. Dizziness, more likely due to bradycardia. 2. Right-sided headache for 1 week 3. Prerenal azotemia secondary to hypodynamics. 4. Hx of [place] 10 years ago 5. Bilateral breast benign tumor removal. 6. Nicotine dependence 7. Overweight 8. CAD 9. Dirty UA, repeat Assessment/Plan -DVT proph. ambulation -GI proph. Protonix -UA to repeat -telemetry service -cardiology consult dr Davis. Result Diagram: 05/23/1962005/23/19620 Results 24hrs Laboratory Tests Test 05/22/19 23:34 05/22/19 23:35 05/22/19 23:44 05/22/19 23:45 Urine Opiates Negative Screen Urine Barbiturates Negative Urine Amphetamines Negative Screen Urine Negative Benzodiazepines Screen Urine Cocaine Negative Screen Urine Cannabinoids Negative White Blood Count 7.1 Red Blood Count 4.36 Hemoglobin 13.7 Hematocrit 41.2 Mean Corpuscular 94.5 Volume Mean Corpuscular 31.4 Hemoglobin Mean Corpuscular 33.3 Hemoglobin Concent Red Cell 12.6 Distribution Width Platelet Count 236 Mean Platelet 12.0 H Volume Immature 0.300 Granulocytes % Neutrophils % 60.7 Lymphocytes % 22.4 Monocytes % 9.7 Eosinophils % 6.2 Basophils % 0.7 Nucleated Red Blood 0.0 Cells % Immature 0.020 Granulocytes # Neutrophils # 4.3 Lymphocytes # 1.6 Monocytes # 0.7 Eosinophils # 0.4 Basophils # 0.1 Nucleated Red Blood 0.0 Cells # Prothrombin Time 12.5 Prothrombin Time 1.0 Ratio INR International 0.92 Normalized Ratio Activated 34.4 Partial Thromboplas t Time D-Dimer 295.82 D-Dimer Comment Sodium Level 136 Potassium Level 4.2 Chloride Level 98 Carbon Dioxide 25 Level Anion Gap 13 Blood Urea Nitrogen 32 H Creatinine 0.98 Est Glomerular > 60 Filtrat Rate mL/min Glucose Level 114 Calcium Level 9.9 Magnesium Level 2.2 Total Bilirubin 0.4 Direct Bilirubin 0.00 Indirect Bilirubin 0.4 Aspartate Amino 31 Transf (AST/SGOT) Alanine 24 Aminotransferase (A LT/SGPT) Alkaline 87 Phosphatase Troponin I < 0.012 B-Type Natriuretic < 11 Peptide Total Protein 8.6 H Albumin 4.8 Globulin 3.80 H Albumin/Globulin 1.26 Ratio Ethyl Alcohol Level < 10.0 H Bedside Urine pH 5.5 (LAB) Bedside Urine 1+ H Protein (LAB) Bedside Urine Negative Glucose (UA) Bedside Urine 1+ H Ketones (LAB) Bedside Urine Blood Trace-lysed H Bedside Urine Negative Nitrite (LAB) Bedside Urine Trace H Leukocyte Esterase (L POC Beta HCG, NEGATIVE Qualitative Test 05/23/19 06:21 White Blood Count 5.5 # Red Blood Count 3.95 L Hemoglobin 12.3 Hematocrit 37.1 Mean Corpuscular 93.9 Volume Mean Corpuscular 31.1 Hemoglobin Mean Corpuscular 33.2 Hemoglobin Concent Red Cell 12.4 Distribution Width Platelet Count 203 Mean Platelet 11.8 H Volume Immature 0.400 Granulocytes % Neutrophils % 59.1 Lymphocytes % 22.7 Monocytes % 11.3 H Eosinophils % 6.0 Basophils % 0.5 Nucleated Red Blood 0.0 Cells % Immature 0.020 Granulocytes # Neutrophils # 3.2 Lymphocytes # 1.2 Monocytes # 0.6 Eosinophils # 0.3 Basophils # 0.0 Nucleated Red Blood 0.0 Cells # Sodium Level 138 Potassium Level 4.5 Chloride Level 103 Carbon Dioxide 27 Level Anion Gap 8 Blood Urea Nitrogen 22 H Creatinine 0.81 Est Glomerular > 60 Filtrat Rate mL/min Glucose Level 93 Hemoglobin A1c 4.7 Calcium Level 9.6 Magnesium Level 2.1 Total Bilirubin 0.5 Direct Bilirubin 0.00 Indirect Bilirubin 0.5 Aspartate Amino 30 Transf (AST/SGOT) Alanine 28 Aminotransferase (A LT/SGPT) Alkaline 71 Phosphatase Total Protein 7.5 # Albumin 4.3 Globulin 3.20 Albumin/Globulin 1.34 Ratio Triglycerides Level 51 Cholesterol Level 156 LDL Cholesterol, 100 Calculated HDL Cholesterol 46 Cholesterol/HDL 3.3 Ratio Thyroid Stimulating 3.550 Hormone (TSH) HPI/ROS Admit Date/Time Admit Date/Time May 23, 2019 at 02:45 Hx of Present Illness The patient is a 49-year-old female, resenting to the ER because of dizziness, blurry vision, right-sided headache for 1 week. He had a cold more than a week ago, was seen in the ER 6 days ago and treated with Zithromax and felt better. She reported dyspnea on exertion, orthopnea for the last few days. She smokes and drinks, denies illicit drug Past medical history: Hypertension, CAD, history of [place] 10 years ago Past surgical history: Bilateral breast benign tumor removal, last 2 years ago. Bengh cyst removal right side of the scalp PMH/Family/Social Past Medical History Medical History: coronary artery disease, hypertension Medications Current Medications IV Flush (NS 3 ml) 3 ml PER PROTOCOL IV ; Start 05/23/19 at 03:00 Ondansetron HCl (Zofran Inj) 4 mg Q6H PRN IV NAUSEA/VOMITING Last administered on 05/23/19at 10:36; Admin Dose 4 MG; Start 05/23/19 at 03:00 Acetaminophen (Tylenol Tab) 650 mg Q6H PRN PO .PAIN 1-3 OR TEMP Last administered on 05/23/19at 10:36; Admin Dose 650 MG; Start 05/23/19 at 03:00 Docusate Sodium (Colace) 100 mg Q12H PRN PO .CONSTIPATION; Start 05/23/19 at 03:00 Bisacodyl (Dulcolax) 5 mg DAILY PRN PO .CONSTIPATION; Start 05/23/19 at 03:00 Hydralazine HCl (Apresoline) 10 mg Q4H PRN IV ELEVATED SYSTOLIC BP; Start 05/23/19 at 06:00 Albuterol (Proventil 0.083% (Neb)) 2.5 mg Q4H RESP THERAPY PRN HHN SHORTNESS OF BREATH; Start 05/23/19 at 06:00 Nitroglycerin (Nitroglycerin (Sl Tab) 0.4 Mg) 1 tab Q5M PRN SL ANGINA; Start 05/23/19 at 15:30 Coded Allergies: nitrofurantoin (Unverified Allergy, Unknown, 05/23/19) phenazopyridine (Unverified Allergy, Unknown, 05/23/19) prochlorperazine (Unverified Allergy, Unknown, 05/23/19) Past Surgical History Past Surgical Hx: other ( Bilateral breast benign tumor) Social History Alcohol Use: occasionally Smoking Status: Current every day smoker Drug Use: none Exam/Review of Systems Vital Signs Vitals Vital Signs Date Temp Pulse Resp B/P (MAP) Pulse Ox O2 O2 Flow FiO2 Time Delivery Rate 05/23/19 97.8 58 19 140/84 96 15:34 (102) 05/23/19 Room Air 05:40 Exam Constitutional: alert, oriented Head: normocephalic Respiratory: clear to auscultation Cardiovascular: regular rate and rhythm NESSA CHAVEZ May 23, 2019 16:06
--- NOTE | 2019-05-23 18:50 | CONS ---
DATE OF ADMISSION: 05/23/2019 DATE OF CONSULTATION: 05/23/2019 REASON FOR CONSULTATION: Chest pain, assess for acute coronary syndrome as well as presyncope, rule out cardiac etiology. Rule out cardiac arrhythmia. REQUESTING PHYSICIAN: Braulio Tejada MD HISTORY OF PRESENT ILLNESS: Ms. Monreal is a 49-year-old female with a history of prior admit for chest pain in 2009 with negative troponins at that time, bilateral breast mass status post mastectomy, who presents with 1 week of dizziness, associated headache, feeling like she may pass out but has not actually passed out, worse with ambulation and then additionally dyspnea on exertion and then over the last few days chest pain described as a heaviness or pressure-like sensation across her chest. In addition, the patient complains of ongoing blurry vision for 1 week. Upon arrival, temperature 97.7, blood pressure of 157/92, pulse 70, respiration 18, sat 98%. The patient's labs are notable for white count 7.1, hemoglobin 13.7, platelet count 236. Sodium 136, potassium 4.2, creatinine 0.9, BUN 32. Troponin negative. BNP less than 11. INR of 0.92. Tox screen negative. UA borderline. The patient underwent a chest x-ray revealing no acute cardiopulmonary abnormalities and a head CT that revealed mild diffuse volume loss. The patient's electrocardiogram revealed sinus rhythm, rate of 67 with normal axis, isolated T flattening in aVL. The patient is admitted to the floor and since admitted to floor was monitored on telemetry revealing sinus rhythm, no significant arrhythmias or pauses, some borderline sinus bradycardia to the 50s. The patient has had mainly reasonably controlled blood pressures 130s over 80s. The patient continues to have chest pain, blurry vision, dizziness. PAST MEDICAL HISTORY: As above in HPI. MEDICATIONS CURRENTLY IN HOSPITAL: 1. Hydralazine 10 mg IV push p.r.n. 2. Zofran 4 mg p.r.n. 3. Tylenol p.r.n. 4. Colace p.r.n. 5. Dulcolax p.r.n. 6. The patient received IV fluid boluses x2. ALLERGIES: 1. NITROFURANTOIN. 2. PROCHLORPERAZINE. SOCIAL HISTORY: Positive tobacco, social ETOH, no illicit drug use. FAMILY HISTORY: No history of sudden cardiac or early CAD. REVIEW OF SYSTEMS: As above in HPI. CONSTITUTIONAL: No fevers, chills. PULMONARY: Dyspnea on exertion. CARDIOVASCULAR: Chest pain. GASTROINTESTINAL: No vomiting. GENITOURINARY: No hematuria. MUSCULOSKELETAL: Degenerative joint disease. PSYCHIATRIC: Possible anxiety. NEUROLOGIC: No documented history of CVA. PHYSICAL EXAMINATION VITAL SIGNS: Temperature 98.1, blood pressure 132/86, pulse 60, respiratory rate 19, satting 97%. GENERAL: The patient is alert, awake; complaining of dizziness, blurry vision, chest pain. NECK: JVP approximately 8 to 9 cm of water. CHEST: Fair movement throughout with mildly decreased breath sounds at base bilaterally. HEART: Regular rate and rhythm. Normal S1, S2, I/ systolic murmur, nondisplaced PMI. ABDOMEN: Positive bowel sounds, soft. EXTREMITIES: No significant pitting edema, 1+ pulses bilateral posterior tibial. LABORATORY DATA: Most recently from today, sodium of 138, potassium 4.5, creatinine 0.8, BUN 22. LDL 100, HDL 46. White blood cell count 5.5, hemoglobin 12.3, platelet count 203. IMAGING STUDIES: As above in the HPI. No further imaging studies for my review at this time. ECG: As above in the HPI. No further electrocardiograms for my review at this time. IMPRESSION: 1. Chest pain, assess for acute coronary syndrome which is somewhat atypical at this time to allow for cardiac etiology but ongoing symptoms. Per patient, had had a history of [place], but per chart biopsy it appears the patient had an admit in 2009 for chest pain with negative troponins. 2. Abnormal electrocardiogram with isolated T flattened in aVL and underwent some borderline "voltage criteria for LVH." 3. Hypertension, borderline but reasonable at this time off of antihypertensives. 4. Presyncope with ongoing dizziness. Rule out cardiac arrhythmia, rule out acute CVA. Negative head CT at this time. 5. Dyslipidemia with low HDL. 6. Signs of dehydration by labs. 7. Blurry vision, rule out cerebrovascular accident or primary visual disturbance. RECOMMENDATIONS: 1. At this time, would maintain the patient on telemetry monitoring to follow rhythm and rate, rule out rhythm cause of the patient's dizziness and presyncopal episodes. 2. Complete the patient's rule out for myocardial infarction to ensure the patient's chest pain is not indicative of an acute coronary syndrome or acute myocardial infarction. 3. Check a 2D echo to further assess the patient's ejection fraction, wall motion for major abnormalities. She will continue to follow the patient's chest pain off of antihypertensives at this time and will give patient sublingual nitroglycerin for chest pain at this time and if it continues to recur ongoing, will start patient on standing oral nitrates. 4. Check orthostatics to ensure that orthostasis is not due to patient's presyncopal episodes and dizziness, so we will give patient additional IV fluid hydration with a BNP less than 11. 5. If patient is ruled out for myocardial infarction, we will consider a stress test in this patient to further assess possibility of significant obstructive coronary lesion with symptoms of chest pain, dizziness and subsequent admit to the hospital. Thank you for allowing me to take part in the care of this patient. I will continue to follow her very closely with you with recommendations to be made as the patient progresses through her inpatient hospital clinical course. Dictated By: VINCENT ALVARADO/ANA Conf#: [id number] DID#: [id number] CC: BRAULIO TEJADA MD;*EndCC* MTDD
[2019-05-23 20:00] VITALS: BP 147/78; PULSE 54; RESP 18
[2019-05-24] VITALS: BP 138/88; PULSE 63; RESP 17
[2019-05-24 04:00] VITALS: BP 137/67; PULSE 63; RESP 18
[2019-05-24] MEDS: PANTOPRAZOLE (EC) 40 MG TAB PO SCH (06:00)
[2019-05-24 07:32] VITALS: BP 124/66; PULSE 74; RESP 18
[2019-05-24] MEDS: ENOXAPARIN 40 MG/0.4 ML SYG SC SCH (08:42)
[2019-05-24] MEDS: BISACODYL (EC) 5 MG TAB PO PRN (09:18)
[2019-05-24] MEDS ORDERED: REGADENOSON 0.4 MG/5 ML SYG ONE (11:20)
--- NOTE | 2019-05-24 12:05 | CONS ---
Assessment/Plan Assessment/Plan Hospital Course (Demo Recall) IMPRESSION: 1. Chest pain, assess for acute coronary syndrome which is somewhat atypical at this time to allow for cardiac etiology but ongoing symptoms. Per patient, had had a history of [place], but per chart it appears the patient had an admit for chest pain with negative troponins.- now neg trop x 3 this admit, intermittent chest pain ongoing 2. Abnormal electrocardiogram with isolated T flattened in aVL and underwent some borderline "voltage criteria for LVH." 3. Hypertension, borderline but reasonable at this time off of antihypertensives. 4. Presyncope with ongoing dizziness. Rule out cardiac arrhythmia, rule out acute CVA. Negative head CT at this time.-no sig arrythmia by tele monitor 5. Dyslipidemia with low HDL.-LDL 100 HDL 46 6. Signs of dehydration by labs. 7. Blurry vision, rule out cerebrovascular accident or primary visual disturbance.-negative head ct this admit Recc: -Tele -consider low dose antihypertensives given borderline elevated BP but may be affected by pain/discomfort and thus may start low dose oral nitrates but given MCCORMICK will hold on these -lexiscan stress test today -will f/u echo Consultation Date/Type/Reason Admit Date/Time May 23, 2019 at 02:45 Initial Consult Date 05/23/19 Type of Consult Cardiology Reason for Consultation chest pain Requesting Provider: NORAM TEJADA MD Date/Time of Note DATE: 05/24/19 TIME: 11:59 Exam/Review of Systems Vital Signs Vitals Vital Signs Date Temp Pulse Resp B/P (MAP) Pulse Ox O2 O2 Flow FiO2 Time Delivery Rate 05/24/19 97.6 74 18 124/66 97 07:32 (85) 05/23/19 Room Air 05:40 Intake and Output 05/23/19 05/23/19 05/24/19 1515:00 23:00 07:00 IntakeIntake Total 100 ml OutputOutput Total 1 ml BalanceBalance -1 ml 100 ml Exam Exam Review of Systems: CONSTITUTIONAL: No fevers, chills. PULMONARY: No sob CARDIOVASCULAR: intermittent chest pain GASTROINTESTINAL: No nausea/vomiting. GENITOURINARY: No hematuria/dysuria. MUSCULOSKELETAL: No myagias/arthalgias. PSYCHIATRIC: The patient denies depression. NEUROLOGIC: ongoing dizziness and blurry vision Constitutional: alert Psych: no complaints Head: normocephalic ENMT: mucosa pink and moist Neck: supple, jvd (9 cm water) Respiratory: clear to auscultation Cardiovascular: regular rate and rhythm Gastrointestinal: soft, non-tender Musculoskeletal: muscle tone (normal) Extremities: edema (none) Neurological: other (dizziness) Labs Result Diagram: 05/24/19 0616 05/24/19 0616 Results 24hrs Laboratory Tests Test 05/23/19 18:52 05/24/19 01:04 05/24/19 05:48 05/24/19 06:16 Troponin I < 0.012 < 0.012 < 0.012 Urine Color YELLOW Urine Clarity CLEAR Urine pH 5.0 Urine Specific 1.013 [place] Urine Ketones NEGATIVE Urine Nitrite NEGATIVE Urine Bilirubin NEGATIVE Urine Urobilinogen NEGATIVE Urine Leukocyte NEGATIVE Esterase Urine Microscopic 1 RBC Urine Microscopic 0 WBC Urine Squamous FEW Epithelial Cells Urine Hemoglobin NEGATIVE Urine Glucose NEGATIVE Urine Total Protein NEGATIVE White Blood Count 6.3 Red Blood Count 4.24 Hemoglobin 13.2 Hematocrit 40.9 Mean Corpuscular 96.5 Volume Mean Corpuscular 31.1 Hemoglobin Mean Corpuscular 32.3 Hemoglobin Concent Red Cell 12.5 Distribution Width Platelet Count 204 Mean Platelet Volume 12.0 H Immature 0.200 Granulocytes % Neutrophils % 66.4 Lymphocytes % 17.7 Monocytes % 9.2 Eosinophils % 5.9 Basophils % 0.6 Nucleated Red Blood 0.0 Cells % Immature 0.010 Granulocytes # Neutrophils # 4.2 Lymphocytes # 1.1 Monocytes # 0.6 Eosinophils # 0.4 Basophils # 0.0 Nucleated Red Blood 0.0 Cells # Sodium Level 143 Potassium Level 4.4 Chloride Level 104 Carbon Dioxide Level 28 Anion Gap 11 Blood Urea Nitrogen 15 Creatinine 0.82 Est Glomerular > 60 Filtrat Rate mL/min Glucose Level 91 Uric Acid 5.6 Calcium Level 9.9 Total Bilirubin 0.5 Direct Bilirubin 0.00 Indirect Bilirubin 0.5 Aspartate Amino 30 Transf (AST/SGOT) Alanine 26 Aminotransferase (AL T/SGPT) Alkaline Phosphatase 72 Total Protein 7.6 Albumin 4.5 Globulin 3.10 Albumin/Globulin 1.45 Ratio Medications Medications Current Medications IV Flush (NS 3 ml) 3 ml PER PROTOCOL IV ; Start 05/23/19 at 03:00 Ondansetron HCl (Zofran Inj) 4 mg Q6H PRN IV NAUSEA/VOMITING Last administered on 05/23/19at 10:36; Admin Dose 4 MG; Start 05/23/19 at 03:00 Acetaminophen (Tylenol Tab) 650 mg Q6H PRN PO .PAIN 1-3 OR TEMP Last administered on 05/23/19at 21:43; Admin Dose 650 MG; Start 05/23/19 at 03:00 Docusate Sodium (Colace) 100 mg Q12H PRN PO .CONSTIPATION; Start 05/23/19 at 03:00 Bisacodyl (Dulcolax) 5 mg DAILY PRN PO .CONSTIPATION Last administered on at 09:18; Admin Dose 5 MG; Start 05/23/19 at 03:00 Hydralazine HCl (Apresoline) 10 mg Q4H PRN IV ELEVATED SYSTOLIC BP; Start 05/23/19 at 06:00 Albuterol (Proventil 0.083% (Neb)) 2.5 mg Q4H RESP THERAPY PRN HHN SHORTNESS OF BREATH; Start 05/23/19 at 06:00 Nitroglycerin (Nitroglycerin (Sl Tab) 0.4 Mg) 1 tab Q5M PRN SL ANGINA; Start 05/23/19 at 15:30 Pantoprazole (Protonix Tab) 40 mg DAILY@06 PO ; Start 05/24/19 at 06:00 Enoxaparin Sodium (Lovenox) 40 mg DAILY SC Last administered on 05/24/19at 08:42; Admin Dose 40 MG; Start 05/24/19 at 09:00 VINCENT FIELD May 24, 2019 12:05
[2019-05-24] MEDS: ONDANSETRON 4 MG INJ IV PRN (13:38)
[2019-05-24] MEDS: ACETAMINOPHEN 325 MG TAB PO PRN (13:38)
--- NOTE | 2019-05-24 15:26 | PN ---
Date/Time of Note Date/Time of Note DATE: 05/24/19 TIME: 15:22 Assessment/Plan VTE Prophylaxis Risk score (from [facility])>0 risk: 1 SCD applied (from [facility]): No SCD contraindicated: low risk/ambulating Pharmacological prophylaxis: NA/contraindicated Pharm contraindication: low risk/ambulating Lines/Catheters IV Catheter Type (from [facility]): Peripheral IV Urinary Cath still in place: No Assessment/Plan Hospital Course 1. Dizziness due to bradycardia vs Vertigo vs right side [place] palsy. 2. Right-sided headache for 1 week. Blurry vision right eye. Excessive tearing. 3. Prerenal azotemia secondary to hypodynamics. 4. Hx of NC 10 years ago 5. Bilateral breast benign tumor removal. 6. Nicotine dependence 7. Overweight 8. CAD 9. Dirty UA, repeat Assessment/Plan -DVT proph. ambulation -GI proph. Protonix -neurology consult Dr Zacarias aware -UA is normal -telemetry service -cardiology consult dr Fernandez. -stress test is negative Result Diagram: 05/24/1916 05/24/19 0616 Results 24hrs Laboratory Tests Test 05/23/19 18:52 05/24/19 01:04 05/24/19 05:48 05/24/19 06:16 Troponin I < 0.012 < 0.012 < 0.012 Urine Color YELLOW Urine Clarity CLEAR Urine pH 5.0 Urine Specific 1.013 [place] Urine Ketones NEGATIVE Urine Nitrite NEGATIVE Urine Bilirubin NEGATIVE Urine Urobilinogen NEGATIVE Urine Leukocyte NEGATIVE Esterase Urine Microscopic 1 RBC Urine Microscopic 0 WBC Urine Squamous FEW Epithelial Cells Urine Hemoglobin NEGATIVE Urine Glucose NEGATIVE Urine Total Protein NEGATIVE White Blood Count 6.3 Red Blood Count 4.24 Hemoglobin 13.2 Hematocrit 40.9 Mean Corpuscular 96.5 Volume Mean Corpuscular 31.1 Hemoglobin Mean Corpuscular 32.3 Hemoglobin Concent Red Cell 12.5 Distribution Width Platelet Count 204 Mean Platelet Volume 12.0 H Immature 0.200 Granulocytes % Neutrophils % 66.4 Lymphocytes % 17.7 Monocytes % 9.2 Eosinophils % 5.9 Basophils % 0.6 Nucleated Red Blood 0.0 Cells % Immature 0.010 Granulocytes # Neutrophils # 4.2 Lymphocytes # 1.1 Monocytes # 0.6 Eosinophils # 0.4 Basophils # 0.0 Nucleated Red Blood 0.0 Cells # Sodium Level 143 Potassium Level 4.4 Chloride Level 104 Carbon Dioxide Level 28 Anion Gap 11 Blood Urea Nitrogen 15 Creatinine 0.82 Est Glomerular > 60 Filtrat Rate mL/min Glucose Level 91 Uric Acid 5.6 Calcium Level 9.9 Total Bilirubin 0.5 Direct Bilirubin 0.00 Indirect Bilirubin 0.5 Aspartate Amino 30 Transf (AST/SGOT) Alanine 26 Aminotransferase (AL T/SGPT) Alkaline Phosphatase 72 Total Protein 7.6 Albumin 4.5 Globulin 3.10 Albumin/Globulin 1.45 Ratio Subjective 24 Hr Interval Summary Eyes: pain (right eye tearing and pain) Skin: no complaints Neurologic: focal-weakness (right side of the face) Exam/Review of Systems Exam Vitals Vital Signs Date Temp Pulse Resp B/P (MAP) Pulse Ox O2 O2 Flow FiO2 Time Delivery Rate 05/24/19 97.6 74 18 124/66 97 07:32 (85) 05/23/19 Room Air 05:40 Intake and Output 05/23/19 05/23/19 05/24/19 1515:00 23:00 07:00 IntakeIntake Total 100 ml OutputOutput Total 1 ml BalanceBalance -1 ml 100 ml Constitutional: alert, oriented Psych: no complaints Respiratory: clear to auscultation Cardiovascular: regular rate and rhythm Gastrointestinal: soft Musculoskeletal: muscle weakness, other (uses cane) Results Results 24hrs Laboratory Tests Test 05/23/19 18:52 05/24/19 01:04 05/24/19 05:48 05/24/19 06:16 Troponin I < 0.012 < 0.012 < 0.012 Urine Color YELLOW Urine Clarity CLEAR Urine pH 5.0 Urine Specific 1.013 [place] Urine Ketones NEGATIVE Urine Nitrite NEGATIVE Urine Bilirubin NEGATIVE Urine Urobilinogen NEGATIVE Urine Leukocyte NEGATIVE Esterase Urine Microscopic 1 RBC Urine Microscopic 0 WBC Urine Squamous FEW Epithelial Cells Urine Hemoglobin NEGATIVE Urine Glucose NEGATIVE Urine Total Protein NEGATIVE White Blood Count 6.3 Red Blood Count 4.24 Hemoglobin 13.2 Hematocrit 40.9 Mean Corpuscular 96.5 Volume Mean Corpuscular 31.1 Hemoglobin Mean Corpuscular 32.3 Hemoglobin Concent Red Cell 12.5 Distribution Width Platelet Count 204 Mean Platelet Volume 12.0 H Immature 0.200 Granulocytes % Neutrophils % 66.4 Lymphocytes % 17.7 Monocytes % 9.2 Eosinophils % 5.9 Basophils % 0.6 Nucleated Red Blood 0.0 Cells % Immature 0.010 Granulocytes # Neutrophils # 4.2 Lymphocytes # 1.1 Monocytes # 0.6 Eosinophils # 0.4 Basophils # 0.0 Nucleated Red Blood 0.0 Cells # Sodium Level 143 Potassium Level 4.4 Chloride Level 104 Carbon Dioxide Level 28 Anion Gap 11 Blood Urea Nitrogen 15 Creatinine 0.82 Est Glomerular > 60 Filtrat Rate mL/min Glucose Level 91 Uric Acid 5.6 Calcium Level 9.9 Total Bilirubin 0.5 Direct Bilirubin 0.00 Indirect Bilirubin 0.5 Aspartate Amino 30 Transf (AST/SGOT) Alanine 26 Aminotransferase (AL T/SGPT) Alkaline Phosphatase 72 Total Protein 7.6 Albumin 4.5 Globulin 3.10 Albumin/Globulin 1.45 Ratio Medications Medication Current Medications IV Flush (NS 3 ml) 3 ml PER PROTOCOL IV ; Start 05/23/19 at 03:00 Ondansetron HCl (Zofran Inj) 4 mg Q6H PRN IV NAUSEA/VOMITING Last administered on 05/24/19at 13:38; Admin Dose 4 MG; Start 05/23/19 at 03:00 Acetaminophen (Tylenol Tab) 650 mg Q6H PRN PO .PAIN 1-3 OR TEMP Last administered on 05/24/19at 13:38; Admin Dose 650 MG; Start 05/23/19 at 03:00 Docusate Sodium (Colace) 100 mg Q12H PRN PO .CONSTIPATION; Start 05/23/19 at 03:00 Bisacodyl (Dulcolax) 5 mg DAILY PRN PO .CONSTIPATION Last administered on 05/24/19at 09:18; Admin Dose 5 MG; Start 05/23/19 at 03:00 Hydralazine HCl (Apresoline) 10 mg Q4H PRN IV ELEVATED SYSTOLIC BP; Start 05/23/19 at 06:00 Albuterol (Proventil 0.083% (Neb)) 2.5 mg Q4H RESP THERAPY PRN HHN SHORTNESS OF BREATH; Start 05/23/19 at 06:00 Nitroglycerin (Nitroglycerin (Sl Tab) 0.4 Mg) 1 tab Q5M PRN SL ANGINA; Start 05/23/19 at 15:30 Pantoprazole (Protonix Tab) 40 mg DAILY@06 PO ; Start 05/24/19 at 06:00 Enoxaparin Sodium (Lovenox) 40 mg DAILY SC Last administered on 05/24/19at 08:42; Admin Dose 40 MG; Start 05/24/19 at 09:00 Amlodipine Besylate (Norvasc) 2.5 mg HS PO ; Start 05/24/19 at 21:00 NESSA CHAVEZ May 24, 2019 15:26
[2019-05-24 15:42] VITALS: BP 139/82; PULSE 60; RESP 18
[2019-05-24] MEDS: ASPIRIN (EC) 81 MG TAB PO SCH (15:57)
--- NOTE | 2019-05-24 15:57 | RADRPT ---
Vent Rate: 61 bpm RR Interval: 992 msec IA Interval: 131 msec QRS Duration: 87 msec QT Interval: 443 msec QTC Interval: 445 msec P-R-T [place]: 56 - 0 - [id number] degrees Sinus rhythm...normal P axis, V-rate 50- 99 Normal axis Nonspecific T abnormalities, inferior leads...T <-0.10mV, II III aVF Electronically Signed By: Ha Fernandez
--- NOTE | 2019-05-24 16:05 | RADRPT ---
Echocardiogram Report Patient Name: Cecelia VERNON ID: [id number] : 1970 (49y )Study Date: 05/24/2019 8:49:10 AM Gender: FAccession #: [id number] Tech: LE Location: [facility] Ref.Physician: VANNESSA SIDHU Height(Cm): BSA: Weight(Kg): Quality: GoodOrder Physician: VANNESSA SIDHU Account #: Procedures: Echocardiographic Report: Transthoracic echocardiogram with complete 2D, M-Mode, and doppler examination. Indications: Syncope. Measurements: 2D/M Mode Doppler Measurement Value Normal Range Measurement Value Normal Range LVIDd 2D 5.0 [ 3.8 - 5.2 ] cm AV Mean Ap 0.9 [ 70.0 - 90.0 ] cm/sec LVIDs 2D 3.4 [ 2.2 - 3.5 ] cm AV Mean PG 4.0 [ 2.0 - 4.0 ] mmHg LVPWd 2D 1.1 [ 0.6 - 0.9 ] cm AV Peak Ap 1.3 [ 100.0 - 170.0 ] cm/sec IVSd 2D 1.0 [ 0.6 - 0.9 ] cm AV Peak PG 6.0 [ 2.0 - 9.0 ] mmHg EDV 2D 118.0 [ 46.0 - 106.0 ] ml AV VTI 26.6 cm ESV 2D 46.4 [ 14.0 - 42.0 ] ml LVOT Peak Ap 1.0 [ 70.0 - 110.0 ] cm/sec EF 2D 60.7 [ 54.0 - 74.0 ] percent LVOT Peak PG 4.0 [ 2.0 - 6.0 ] mmHg LVOT Diam 2.0 [ 2.1 - 2.5 ] cm MV E Peak Ap 0.6 [ 60.0 - 130.0 ] cm/sec MV A Peak Ap 0.5 [ 100.0 - 120.0 ] cm/sec MV E/A 1.3 [ 0.8 - 1.5 ] ratio MV Decel Time 211 [ 104 - 258 ] msec Lat E` Ap 0.1 [ 10.0 - 15.0 ] cm/sec Lateral E/E` 7.6 [ 1.0 - 2.0 ] ratio Med E` Ap 0.1 cm/sec MV E/A 1.3 [ 0.8 - 1.5 ] ratio TR Peak Ap 2.1 [ 100.0 - 280.0 ] cm/sec TR Peak PG 17.0 mmHg PV Peak Ap 0.8 [ 40.0 - 80.0 ] cm/sec PV Peak PG 3.0 mmHg Findings: Left Ventricle: Normal left ventricular systolic function. Normal left ventricular cavity size. Normal left ventricular wall thickness. Ejection fraction is visually estimated at 60 %. Abnormal Diastolic Function. Right Ventricle: Normal right ventricular size. Normal right ventricular systolic function. Left Atrium: The left atrium is normal in size. Right Atrium: The right atrium is normal in size. Mitral Valve: Normal appearance of the mitral valve. Trace mitral regurgitation. Aortic Valve: Normal appearance of the aortic valve. No significant aortic stenosis or insufficiency. Tricuspid Valve: Normal appearance and function of the tricuspid valve with trace physiologic regurgitation. The estimated Peak RVSP is 20 mmHg. Pulmonic Valve: Normal pulmonic valve appearance. There is trace pulmonic regurgitation. Pericardium: Normal pericardium with no significant pericardial effusion. Aorta: Normal aortic root. IVC: Normal size and normal respiratory collapse consistent with normal right atrial pressure. Conclusions: Normal left ventricular systolic function. Normal left ventricular cavity size. Normal left ventricular wall thickness. Ejection fraction is visually estimated at 60 %. Abnormal Diastolic Function. Normal right ventricular size. Normal right ventricular systolic function. No significant valvular stenosis or regurgitation seen. Normal pericardium with no significant pericardial effusion. Electronically Signed By: Severo Bell 2019-05-24 16:04:45 PDT
--- NOTE | 2019-05-24 18:26 | CARRPT ---
DATE OF PROCEDURE: 05/23/2019 REASON FOR STRESS TESTING: Chest pain, assess for ischemia. BASELINE VITAL SIGNS AND ELECTROCARDIOGRAM: Pulse 60, blood pressure 160/97. Electrocardiogram reve aled sinus bradycardia, rate of 57, normal axis, inferior Q's. PROCEDURE: The patient with standard Lexiscan infusion protocol over 10 seconds followed by IV trace r. The patient's test was stopped to complete the protocol. Maximal achieved blood pressure during the test 160/95. Maximum heart rate during the test 112. ELECTROCARDIOGRAM FINDINGS: The patient did not develop any new Lexiscan-induced ST or T-wave change s from baseline abnormalities. No documented PVCs. SYMPTOMS: The patient had complaints of shortness of breath and worsening dizziness, headache during stress test that went back to baseline during recovery. IMPRESSION: 1. No Lexiscan-induced ST or T-wave changes from baseline abnormalities diagnostic of ischemia. 2. Complaints of shortness of breath and chest pain during stress test that resolved in recovery. 3. No documented premature ventricular contractions during stress testing. 4. Report of nuclear images to follow in separate dictation. Dictated By: VINCENT ALVARADO/ANA Conf#: [id number] DID#: [id number] CC: NORMA TEJADA MD;*EndCC*
[2019-05-24 20:00] VITALS: BP 140/87; PULSE 60; RESP 19
[2019-05-24] MEDS: AMLODIPINE 2.5 MG TAB PO SCH (20:36)
[2019-05-24] MEDS: DOCUSATE SODIUM 100 MG CAP PO PRN (20:36)
--- NOTE | 2019-05-24 21:48 | HKNOTE ---
DATE OF SERVICE: HISTORY OF PRESENT ILLNESS: The patient is 49 years, admitted to Dr. Tejada's service in which I got a call about her today for more evaluation and treatment. The patient mentioned she had an acute ons et of dizzy spell, lack of balance, severe headaches. According to her description, she said this st arted around 9 days ago on right side of her head. The patient with a history of coronary artery dis ease, overweight, nicotine dependency, and azotemia. CURRENT MEDICATIONS: Includes: 1. Norvasc 2.5 mg once a day. 2. Lovenox 40 mg subcutaneous once a day. 3. Protonix 40 mg once a day. 4. Nitroglycerin once a day. 5. Albuterol inhaler twice a day. 6. Zofran 4 mg every 4 hours. 7. Tylenol 650. 8. Colace 100 mg once a day. 9. Dulcolax 5 mg once a day. PHYSICAL EXAMINATION: GENERAL: Today, the patient is alert, awake, oriented for time, place, and person. Normal speech an d normal language. CRANIAL NERVES: Cranial nerve II: Pupils equal on both sides, reactive to light. Cranial nerves II I, IV, and : Extraocular muscles intact. Cranial nerve V: Equal sensation to face. Cranial nerv e VII: Decreased nasolabial fold on the left side. Cranial nerve VIII: Equal hearing bilaterally. Cranial nerve IX and X: Elevates palate equally. Cranial nerve XI: Elevates shoulder 5/5. Crania l nerve XII: With straight tongue. MOTOR: Left side 4+/5. Sensation decreased for light touch and temperature in glove and sock area. COORDINATION: [id number] test intact. HEART: Regular rate and rhythm. LUNGS: Equal breath sounds. ABDOMEN: Soft, relaxed, nondistended, no tenderness. ASSESSMENT AND PLAN: 1. The patient is 49 years old status post severe intractable headache. Follow up the patient with MRI and MRA for more evaluation and treatment. Possibility of underlying stroke. Continue the patie nt on Lovenox and I will add for her aspirin for stroke prophylaxis. Follow up the patient with schaffer tid Doppler and 2D echocardiogram. 2. Acute dizzy spell might have underlying seizure. Follow up the patient with electroencephalogram . Keep the patient under seizure precaution. 3. Possibility of underlying arthritis in which follow up the patient with erythrocyte sedimentation rate. 4. Status post chest pain. Followup the patient with cardiology consult. 5. Hypertension. Keep the blood pressure level 140/90 to avoid extension of stroke. 6. Dyslipidemia with the patient followed by lipid panel. Consider give her Lipitor 40 mg once a da y. Will follow up the patient with cardiac echogram. 7. Gait difficulty. Follow up the patient with physical therapy and gait evaluation. Again, thank you for asking me to see the patient with you. Dictated By: CALRA MCCULLOUGH MD NA/NTS Conf#: [id number] DID#: [id number] CC: NORMA TEJADA MD;*EndCC*
[2019-05-25] VITALS: BP 134/74; PULSE 84; RESP 18
[2019-05-25] MEDS: ACETAMINOPHEN 325 MG TAB PO PRN ×2 (05:32→13:17)
[2019-05-25] MEDS: PANTOPRAZOLE (EC) 40 MG TAB PO SCH (05:32)
[2019-05-25 07:34] VITALS: BP 124/79; PULSE 62; RESP 18
[2019-05-25] MEDS: ASPIRIN (EC) 81 MG TAB PO SCH (08:09)
[2019-05-25] MEDS: ENOXAPARIN 40 MG/0.4 ML SYG SC SCH (08:19)
[2019-05-25 09:54] VITALS: BP_SYST 129; BP_SYST 134; BP_SYST 139; BP_DIAS 84; BP_DIAS 87; BP_DIAS 89
--- NOTE | 2019-05-25 11:13 | CONS ---
Assessment/Plan Assessment/Plan Hospital Course (Demo Recall) IMPRESSION: 1. Chest pain, assess for acute coronary syndrome which is somewhat atypical at this time to allow for cardiac etiology but ongoing symptoms. Per patient, had had a history of [place], but per chart it appears the patient had an admit for chest pain with negative troponins.- now neg trop x 3 this admit, Lexiscan with NL EF and no ischemia this admit. Echo this admit with NL EF and no sig valve abnl 2. Abnormal electrocardiogram with isolated T flattened in aVL-neg trop's/neg ischemia by lexiscan 3. Hypertension,-improved on low dose CCB/norvasc 4. Presyncope with ongoing dizziness. Rule out cardiac arrhythmia, rule out acute CVA. Negative head CT at this time.-no sig arrythmia by tele monitor 5. Dyslipidemia with low HDL.-LDL 100 HDL 46 6. Signs of dehydration by labs. 7. Blurry vision, rule out cerebrovascular accident or primary visual disturbance.-negative head ct this admit, MRI/MRA without sig findings Recc: -Tele -Continue current low dose norvasc -Continue asa -Ongoing neuro eval Consultation Date/Type/Reason Admit Date/Time May 23, 2019 at 02:45 Initial Consult Date 05/23/19 Type of Consult Cardiology Reason for Consultation chest pain Requesting Provider: NORMA TEJADA MD Date/Time of Note DATE: 05/25/19 TIME: 11:09 Exam/Review of Systems Vital Signs Vitals Vital Signs Date Temp Pulse Resp B/P (MAP) Pulse Ox O2 O2 Flow FiO2 Time Delivery Rate 05/25/19 139/89 09:54 (106) 134/84 (101) 129/87 (101) 05/25/19 98.1 62 18 96 07:34 05/24/19 Room Air 15:42 Intake and Output 05/24/19 05/24/19 05/25/19 1515:00 23:00 07:00 IntakeIntake Total 840 ml 580 ml OutputOutput Total 1 ml BalanceBalance -1 ml 840 ml 580 ml Exam Exam Review of Systems: CONSTITUTIONAL: No fevers, chills. PULMONARY: No sob CARDIOVASCULAR: No chest pain/palpitations GASTROINTESTINAL: No nausea/vomiting. GENITOURINARY: No hematuria/dysuria. MUSCULOSKELETAL: No myagias/arthalgias. PSYCHIATRIC: The patient denies depression. NEUROLOGIC: ongoing dizziness and blurred vision Constitutional: alert Psych: no complaints Head: normocephalic ENMT: mucosa pink and moist Neck: supple, jvd (9 cm water) Respiratory: clear to auscultation Cardiovascular: regular rate and rhythm Gastrointestinal: soft, non-tender Musculoskeletal: muscle weakness (mild generalized) Extremities: edema (none) Neurological: other (dizziness) Labs Result Diagram: 05/25/19 0541 05/25/19 0541 Results 24hrs Laboratory Tests Test 05/25/19 05:41 White Blood Count 8.2 # Red Blood Count 4.36 Hemoglobin 13.5 Hematocrit 41.6 Mean Corpuscular Volume 95.4 Mean Corpuscular Hemoglobin 31.0 Mean Corpuscular Hemoglobin Concent 32.5 Red Cell Distribution Width 12.5 Platelet Count 206 Mean Platelet Volume 12.4 H Immature Granulocytes % 0.100 Neutrophils % 74.5 Lymphocytes % 13.1 L Monocytes % 8.1 Eosinophils % 3.8 Basophils % 0.4 Nucleated Red Blood Cells % 0.0 Immature Granulocytes # 0.010 Neutrophils # 6.1 Lymphocytes # 1.1 Monocytes # 0.7 Eosinophils # 0.3 Basophils # 0.0 Nucleated Red Blood Cells # 0.0 Sodium Level 139 Potassium Level 4.6 Chloride Level 101 Carbon Dioxide Level 27 Anion Gap 11 Blood Urea Nitrogen 21 H Creatinine 0.86 Est Glomerular Filtrat Rate mL/min > 60 Glucose Level 90 Calcium Level 9.9 Total Bilirubin 0.5 Direct Bilirubin 0.00 Indirect Bilirubin 0.5 Aspartate Amino Transf (AST/SGOT) 34 Alanine Aminotransferase (ALT/SGPT) 28 Alkaline Phosphatase 79 Total Protein 8.2 H Albumin 4.6 Globulin 3.60 H Albumin/Globulin Ratio 1.27 Medications Medications Current Medications IV Flush (NS 3 ml) 3 ml PER PROTOCOL IV ; Start 05/23/19 at 03:00 Ondansetron HCl (Zofran Inj) 4 mg Q6H PRN IV NAUSEA/VOMITING Last administered on 05/24/19at 13:38; Admin Dose 4 MG; Start 05/23/19 at 03:00 Acetaminophen (Tylenol Tab) 650 mg Q6H PRN PO .PAIN 1-3 OR TEMP Last administered on 05/25/19at 05:32; Admin Dose 650 MG; Start 05/23/19 at 03:00 Docusate Sodium (Colace) 100 mg Q12H PRN PO .CONSTIPATION Last administered on 05/24/19 20:36; Admin Dose 100 MG; Start 05/23/19 at 03:00 Bisacodyl (Dulcolax) 5 mg DAILY PRN PO .CONSTIPATION Last administered on 05/24/19 09:18; Admin Dose 5 MG; Start 05/23/19 at 03:00 Hydralazine HCl (Apresoline) 10 mg Q4H PRN IV ELEVATED SYSTOLIC BP; Start 05/23/19 at 06:00 Albuterol (Proventil 0.083% (Neb)) 2.5 mg Q4H RESP THERAPY PRN HHN SHORTNESS OF BREATH; Start 05/23/19 at 06:00 Nitroglycerin (Nitroglycerin (Sl Tab) 0.4 Mg) 1 tab Q5M PRN SL ANGINA; Start 05/23/19 at 15:30 Pantoprazole (Protonix Tab) 40 mg DAILY@06 PO Last administered on 05/25/19 05:32; Admin Dose 40 MG; Start 05/24/19 at 06:00 Enoxaparin Sodium (Lovenox) 40 mg DAILY SC Last administered on 05/25/19 08:19; Admin Dose 40 MG; Start 05/24/19 at 09:00 Amlodipine Besylate (Norvasc) 2.5 mg HS PO Last administered on 05/24/19 20 :36; Admin Dose 2.5 MG; Start 05/24/19 at 21:00 Aspirin (Halfprin) 81 mg DAILY PO Last administered on 05/25/19 08:09; Admin Dose 81 MG; Start 05/24/19 at 16:00 VINCENT FIELD May 25, 2019 11:13
[2019-05-25 12:00] VITALS: BP 138/87; PULSE 66; RESP 18
--- NOTE | 2019-05-25 14:07 | PN ---
Date/Time of Note Date/Time of Note DATE: 05/25/19 TIME: 14:04 Assessment/Plan VTE Prophylaxis Risk score (from Ns)>0 risk: 1 SCD applied (from Ns): No SCD contraindicated: low risk/ambulating Pharmacological prophylaxis: NA/contraindicated Pharm contraindication: low risk/ambulating Lines/Catheters IV Catheter Type (from [facility]): Peripheral IV Urinary Cath still in place: No Assessment/Plan Assessment/Plan 1 Dizziness +headaches+blurry vision? stress headches/migraines/a arteritis vs vs vision changes vs vertigo 3. Prerenal azotemia secondary to hypodynamics. 4. Hx of [place] 10 years ago 5. Bilateral breast benign tumor removal. 6. Nicotine dependence 7. Overweight 8. CAD 9. Dirty UA, repeat Assessment/Plan -DVT proph. ambulation -GI proph. Protonix - MRI/MR NEG - ESR - Ibuprofen - meclizine - eeg pending - fu neuro recs Result Diagram: 05/25/19 0541 05/25/19 0541 Results 24hrs Laboratory Tests Test 05/25/19 05:41 White Blood Count 8.2 # Red Blood Count 4.36 Hemoglobin 13.5 Hematocrit 41.6 Mean Corpuscular Volume 95.4 Mean Corpuscular Hemoglobin 31.0 Mean Corpuscular Hemoglobin Concent 32.5 Red Cell Distribution Width 12.5 Platelet Count 206 Mean Platelet Volume 12.4 H Immature Granulocytes % 0.100 Neutrophils % 74.5 Lymphocytes % 13.1 L Monocytes % 8.1 Eosinophils % 3.8 Basophils % 0.4 Nucleated Red Blood Cells % 0.0 Immature Granulocytes # 0.010 Neutrophils # 6.1 Lymphocytes # 1.1 Monocytes # 0.7 Eosinophils # 0.3 Basophils # 0.0 Nucleated Red Blood Cells # 0.0 Sodium Level 139 Potassium Level 4.6 Chloride Level 101 Carbon Dioxide Level 27 Anion Gap 11 Blood Urea Nitrogen 21 H Creatinine 0.86 Est Glomerular Filtrat Rate mL/min > 60 Glucose Level 90 Calcium Level 9.9 Total Bilirubin 0.5 Direct Bilirubin 0.00 Indirect Bilirubin 0.5 Aspartate Amino Transf (AST/SGOT) 34 Alanine Aminotransferase (ALT/SGPT) 28 Alkaline Phosphatase 79 Total Protein 8.2 H Albumin 4.6 Globulin 3.60 H Albumin/Globulin Ratio 1.27 Subjective 24 Hr Interval Summary Free Text/Dictation pain rt side oh head, some bluurry vision, dizziness Exam/Review of Systems Exam Vitals Vital Signs Date Temp Pulse Resp B/P (MAP) Pulse Ox O2 O2 Flow FiO2 Time Delivery Rate 05/25/19 139/89 09:54 (106) 134/84 (101) 129/87 (101) 05/25/19 98.1 62 18 96 07:34 05/24/19 Room Air 15:42 Intake and Output 05/24/19 05/24/19 05/25/19 1515:00 23:00 07:00 IntakeIntake Total 840 ml 580 ml OutputOutput Total 1 ml BalanceBalance -1 ml 840 ml 580 ml Exam Constitutional: alert, oriented Psych: no complaints Respiratory: clear to auscultation Cardiovascular: regular rate and rhythm Gastrointestinal: soft Musculoskeletal: muscle weakness, other (uses cane) Results Results 24hrs Laboratory Tests Test 05/25/19 05:41 White Blood Count 8.2 # Red Blood Count 4.36 Hemoglobin 13.5 Hematocrit 41.6 Mean Corpuscular Volume 95.4 Mean Corpuscular Hemoglobin 31.0 Mean Corpuscular Hemoglobin Concent 32.5 Red Cell Distribution Width 12.5 Platelet Count 206 Mean Platelet Volume 12.4 H Immature Granulocytes % 0.100 Neutrophils % 74.5 Lymphocytes % 13.1 L Monocytes % 8.1 Eosinophils % 3.8 Basophils % 0.4 Nucleated Red Blood Cells % 0.0 Immature Granulocytes # 0.010 Neutrophils # 6.1 Lymphocytes # 1.1 Monocytes # 0.7 Eosinophils # 0.3 Basophils # 0.0 Nucleated Red Blood Cells # 0.0 Sodium Level 139 Potassium Level 4.6 Chloride Level 101 Carbon Dioxide Level 27 Anion Gap 11 Blood Urea Nitrogen 21 H Creatinine 0.86 Est Glomerular Filtrat Rate mL/min > 60 Glucose Level 90 Calcium Level 9.9 Total Bilirubin 0.5 Direct Bilirubin 0.00 Indirect Bilirubin 0.5 Aspartate Amino Transf (AST/SGOT) 34 Alanine Aminotransferase (ALT/SGPT) 28 Alkaline Phosphatase 79 Total Protein 8.2 H Albumin 4.6 Globulin 3.60 H Albumin/Globulin Ratio 1.27 Medications Medication Current Medications IV Flush (NS 3 ml) 3 ml PER PROTOCOL IV ; Start 05/23/19 at 03:00 Ondansetron HCl (Zofran Inj) 4 mg Q6H PRN IV NAUSEA/VOMITING Last administered on 7/14/19at 13:38; Admin Dose 4 MG; Start 05/23/19 at 03:00 Acetaminophen (Tylenol Tab) 650 mg Q6H PRN PO .PAIN 1-3 OR TEMP Last administered on 05/25/19 13:17; Admin Dose 650 MG; Start 05/23/19 at 03:00 Docusate Sodium (Colace) 100 mg Q12H PRN PO .CONSTIPATION Last administered on 05/24/19 20:36; Admin Dose 100 MG; Start 05/23/19 at 03:00 Bisacodyl (Dulcolax) 5 mg DAILY PRN PO .CONSTIPATION Last administered on 05/24/19 09:18; Admin Dose 5 MG; Start 05/23/19 at 03:00 Hydralazine HCl (Apresoline) 10 mg Q4H PRN IV ELEVATED SYSTOLIC BP; Start 05/23/19 at 06:00 Albuterol (Proventil 0.083% (Neb)) 2.5 mg Q4H RESP THERAPY PRN HHN SHORTNESS OF BREATH; Start 05/23/19 at 06:00 Nitroglycerin (Nitroglycerin (Sl Tab) 0.4 Mg) 1 tab Q5M PRN SL ANGINA; Start 05/23/19 at 15:30 Pantoprazole (Protonix Tab) 40 mg DAILY@06 PO Last administered on 05/25/19 05:32; Admin Dose 40 MG; Start 05/24/19 at 06:00 Enoxaparin Sodium (Lovenox) 40 mg DAILY SC Last administered on 05/25/19 08:19; Admin Dose 40 MG; Start 05/24/19 at 09:00 Amlodipine Besylate (Norvasc) 2.5 mg HS PO Last administered on 05/24/19 20:36; Admin Dose 2.5 MG; Start 05/24/19 at 21:00 Aspirin (Halfprin) 81 mg DAILY PO Last administered on 05/25/19 08:09; Admin Dose 81 MG; Start 05/24/19 at 16:00 Meclizine HCl (Antivert) 12.5 mg Q8 PRN PO dizziness; Start 05/25/19 at 14:30; Status JETT ZABALA MD May 25, 2019 14:07
[2019-05-25] MEDS: IBUPROFEN 400 MG TAB PO PRN (15:07)
[2019-05-25] MEDS: MECLIZINE 12.5 MG TAB PO PRN (15:08)
[2019-05-25 16:56] VITALS: BP 132/78; PULSE 66; RESP 18
[2019-05-25] MEDS: BISACODYL (EC) 5 MG TAB PO PRN (18:18)
[2019-05-25 20:00] VITALS: BP 119/83; PULSE 88; RESP 15
[2019-05-25] MEDS: DOCUSATE SODIUM 100 MG CAP PO PRN (21:05)
[2019-05-25] MEDS: AMLODIPINE 2.5 MG TAB PO SCH (21:06)
[2019-05-26 00:01] VITALS: BP_SYST 112; BP_SYST 118; BP_DIAS 72; BP_DIAS 75; BP_DIAS 82; PULSE 64; RESP 19
[2019-05-26] MEDS: MECLIZINE 12.5 MG TAB PO PRN ×3 (01:00→20:46)
[2019-05-26 04:00] VITALS: BP 107/68; PULSE 81; RESP 17
--- NOTE | 2019-05-26 04:38 | HKNOTE ---
DATE OF SERVICE: HISTORY OF PRESENT ILLNESS: The patient with a history of acute dizzy spell, lasting for a few days prior to her admission. The patient with multiple medical problems which include hypertension, dysli pidemia, chest pain, myocardial infarction, azotemia, nicotine dependency, coronary artery disease. PHYSICAL EXAMINATION: GENERAL: Today, the patient is alert, awake, oriented, follows simple commands. CRANIAL NERVES: Cranial nerve II: Pupils equal on both sides, reactive to light. Cranial nerves II I, IV, and : Extraocular muscles are intact without nystagmus. Cranial nerve V: Equal sensation to face. Cranial nerve VII: Symmetrical face. Cranial nerve VIII: Decreased hearing bilaterally. Cranial IX and X: Elevates palate. Cranial nerve XI: Elevates shoulder 5/5. Cranial nerve XII: With straight tongue. 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 SENSATION: Decreased for glove and sock area for light touch and temperature. COORDINATION: [id number] test intact. ASSESSMENT AND PLAN: 1. The patient is 49 years old status post intractable headache with possible underlying transient i schemic attack. Keep the patient's underlying Aspirin 81 mg once a day. 2. Acute dizzy spell, probably second to #1. 3. History of myocardial infarction in which will keep the patient on aspirin for now until cardiolo gy evaluation. 4. History of hypertension. Keep the blood pressure at the level of 140/90. 5. Dyslipidemia, which the patient is on Lipitor 40. 6. Gait difficulty. Follow up the patient with physical therapy. 7. Possibility of underlying seizure. Still waiting for EEG grafts in which I did not find it to be read in which we are going to communicate with the hospital administration about finding a graft for EEG. Again, thank you for asking me to see the patient with you. Dictated By: CARLA MCCULLOUGH MD NA/NTS Conf#: [id number] DID#: [id number] CC: NORMA TEJADA MD;*End*
[2019-05-26] MEDS: PANTOPRAZOLE (EC) 40 MG TAB PO SCH (05:51)
[2019-05-26] MEDS: ASPIRIN (EC) 81 MG TAB PO SCH (09:32)
[2019-05-26] MEDS: DOCUSATE SODIUM 100 MG CAP PO PRN (09:32)
[2019-05-26] MEDS: BISACODYL (EC) 5 MG TAB PO PRN (09:32)
[2019-05-26] MEDS: IBUPROFEN 400 MG TAB PO PRN (09:46)
[2019-05-26] MEDS: ENOXAPARIN 40 MG/0.4 ML SYG SC SCH (09:56)
--- NOTE | 2019-05-26 11:44 | QN ---
Documentation Comment As Physician Advisor I have reviewed the chart and have determined that as of today, this patient continues to receive medically necessary care required for the diagnosis and treatment of illness or injury. There has been no unreasonable delay in the rendering of medically necessary services, and this medically necessary care requires a length of stay expected to be greater than two midnights. Additional information gained during the stay now suggests this patient should have been classified as an inpatient at the time of admission, and I will change the status to inpatient to reflect that medical judgment. Besides the notes from the medical providers, the following information was used in this determination: Patient has required advanced cardiac evaluations with nuclear medicine stress test, and also has required neurological evaluations for unilateral weakness including MRI/MRA. Oral fluid intake only 100 ml in first hospital day. Please call me at [phone] with questions. JEANMARIE LORENZO MD May 26, 2019 11:44
[2019-05-26 12:00] VITALS: BP 133/78; PULSE 77; RESP 17
[2019-05-26] MEDS: ACETAMINOPHEN 325 MG TAB PO PRN ×2 (12:18→20:48)
--- NOTE | 2019-05-26 12:35 | CONS ---
Consult Date/Type/Reason Admit Date/Time May 23, 2019 at 02:45 Initial Consult Date Requesting Provider: NORMA TEJADA MD Date/Time of Note DATE: 05/26/19 TIME: 12:33 Subjective NO acute events - pt comfortable - BP in good range - Stress test was negative for ischemia - pt aware of there results now. ROS: No fever, no chills, no nausea, no vomiting, no diarrhea/constipation No recent weight changes No chest pain, no PND, no orthopnea - mild SOB, no wheezing No dizziness, blurred vision No thirst, no heat or cold intolerance Objective Vitals Vital Signs Date Temp Pulse Resp B/P (MAP) Pulse Ox O2 O2 Flow FiO2 Time Delivery Rate 05/26/19 97.9 81 17 107/68 95 04:00 (81) 05/24/19 Room Air 15:42 Intake and Output 05/25/19 05/25/19 05/26/19 1515:00 23:00 07:00 IntakeIntake Total 700 ml 800 ml BalanceBalance 700 ml 800 ml Exam General: WN/WD/NAD, AOx 3 HEENT: Unicetric/atraumatic/EOMI (follows commands) NECK: JVD elevated, no thyromegaly Lymph: no lymphadenopathy HEART: regular with no S3, II/ systolic murmur at apex, LUNGS: Coarse sounds ABD: soft, NT, ND, +BS : Intact Neuro: non focal SKIN: chronic changes EXT: trace edema Results/Medications Result Diagram: 05/26/19 0550 05/26/19 0550 Results 24 hrs Laboratory Tests Test 05/26/19 05:50 White Blood Count 6.3 # Red Blood Count 4.41 Hemoglobin 13.7 Hematocrit 42.1 Mean Corpuscular Volume 95.5 Mean Corpuscular Hemoglobin 31.1 Mean Corpuscular Hemoglobin Concent 32.5 Red Cell Distribution Width 12.5 Platelet Count 192 Mean Platelet Volume 12.8 H Immature Granulocytes % 0.500 H Neutrophils % 66.2 Lymphocytes % 18.1 Monocytes % 9.8 Eosinophils % 4.8 Basophils % 0.6 Nucleated Red Blood Cells % 0.0 Immature Granulocytes # 0.030 Neutrophils # 4.2 Lymphocytes # 1.1 Monocytes # 0.6 Eosinophils # 0.3 Basophils # 0.0 Nucleated Red Blood Cells # 0.0 Erythrocyte Sedimentation Rate 35.0 H Sodium Level 138 Potassium Level 4.7 Chloride Level 104 Carbon Dioxide Level 23 Anion Gap 11 Blood Urea Nitrogen 17 Creatinine 0.67 Est Glomerular Filtrat Rate mL/min > 60 Glucose Level 95 Calcium Level 10.1 Total Bilirubin 0.5 Direct Bilirubin 0.00 Indirect Bilirubin 0.5 Aspartate Amino Transf (AST/SGOT) 58 H Alanine Aminotransferase (ALT/SGPT) 37 Alkaline Phosphatase 87 Total Protein 8.1 Albumin 4.6 Globulin 3.50 H Albumin/Globulin Ratio 1.31 Home Meds Reported Medications Omeprazole* (Omeprazole*) 20 Mg Capsule.dr, 20 MG PO DAILY for 90 Days, #90 CAP 05/23/19 Albuterol Sulfate* (Albuterol Sulfate*) 2 Mg Tablet, 2 MG PO BID, #120 TAB 05/23/19 Losartan Potassium* (Losartan Potassium*) 25 Mg Tablet, 25 MG PO DAILY for 30 Days, #30 05/23/19 Hydroxyzine Hcl* (Atarax*) 25 Mg Tab, 25 MG PO DAILY for 30 Days, #30 TAB 05/23/19 Amlodipine Besylate* (Amlodipine Besylate*) 5 Mg Tablet, 5 MG PO DAILY for 90 Days, #90 TAB 05/23/19 Discontinued Reported Medications Losartan Potassium* (Losartan Potassium*) 50 Mg Tablet, 50 MG PO DAILY, TAB 11/13/14 Aspirin* (Aspirin* EC) 81 Mg Tablet.dr, 81 MG PO DAILY, TAB 11/13/14 Discontinued Scripts Azithromycin* (Zithromax*) 250 Mg Tablet, 250 MG PO .[place] DIRECTED, #6 TAB TAKE 500 MG (2 TABS) THE FIRST DAY THEN 250 MG (1 TAB) DAYS 2-5 Prov:MELISSA BECK PA-C 05/16/19 Promethazine Hcl* (Promethazine Hcl* Syrup) 6.25 Mg/5 Ml Syrup, 6.25 MG PO Q6H PRN for COUGH, #100 ML Prov:MELISSA BECK PA-C 05/16/19 Benzonatate* (Tessalon Perle*) 100 Mg Capsule, 100 MG PO Q8H PRN for COUGH, #30 CAP Prov:MELISSA BECK PA-C 05/16/19 Benzonatate* (Tessalon Perle*) 100 Mg Capsule, 100 MG PO Q8H PRN for COUGH, #20 CAP Prov:ALISSON DAVLIA PA-C 10/15/18 Albuterol Sulfate* (Albuterol Sulfate*) 2 Mg Tablet, 2 MG PO TID, #21 TAB Prov:ALISSON DAVILA PA-C 10/15/18 Cetirizine Hcl* (Zyrtec*) 10 Mg Capsule, 10 MG PO DAILY, #14 TAB.CHEW Prov:CINDA DE LA CRUZ PA-C 07/26/18 Guaifenesin-Dextromethorphan* (Robitussin* DM) 100MG/10MG/5ML Syrup, 10 ML PO Q6H PRN for COUGH for 5 Days, ML Prov:CINDA DE LA CRUZ PA-C 07/26/18 Albuterol Sulfate* (Albuterol Sulfate*) 4 Mg Tablet, 4 MG PO TID for 14 Days, TAB Prov:CINDA DE LA CRUZ PA-C 07/26/18 Albuterol Sulfate* (Albuterol Sulfate*) 4 Mg Tablet, 4 MG PO TID PRN for COUGH, #14 TAB Prov:SILVANO ERICKSON 07/18/18 Prednisone* (Prednisone*) 20 Mg Tab, 60 MG PO DAILY for 4 Days, TAB Prov:GEORGINASILVANO Faith 07/18/18 Azithromycin* (Zithromax*) 250 Mg Tablet, 250 MG PO .PhillipPACK DIRECTED, #6 TAB TAKE 500 MG (2 TABS) THE FIRST DAY THEN 250 MG (1 TAB) DAYS 2-5 Prov:SILVANO ERICKSON 07/18/18 Loratadine/Pseudoephedrine* (Claritin-D* 12 Hr) 5-120 Mg Tab.er.12h, 1 TAB PO Q12, #20 TAB.SA Prov:JOVITA PENA PA-C 12/22/17 Acetaminophen* (Acetaminophen*) 650 Mg Tablet, 650 MG PO Q6H PRN for PAIN AND OR ELEVATED TEMP, #30 TAB Prov:JOVITA PENAC 12/22/17 Promethazine HCl/Codeine (Prometh-Codein 6.25-10 mg/5 ml) 5 Ml Syrup, 5 ML PO Q6, #60 Prov:JOVITA PENA PA-C 12/22/17 Azithromycin* (Zithromax*) 250 Mg Tablet, 250 MG PO .ZPACK DIRECTED, #6 TAB TAKE 500 MG (2 TABS) THE FIRST DAY THEN 250 MG (1 TAB) DAYS 2-5 Prov:JOVITA PENA PA-C 12/22/17 Meclizine Hcl* (Antivert*) 12.5 Mg Tab, 12.5 MG PO Q6H PRN for DIZZINESS, #20 TAB Prov:BERTIN HOLM MD 10/05/17 Ibuprofen* (Motrin*) 800 Mg Tab, 800 MG PO Q6H PRN for PAIN AND OR ELEVATED TEMP, #30 TAB Prov:BERTIN HOLM MD 10/05/17 Fluticasone Propionate (Flonase Allergy Relief) 9.9 Ml [place].susp, 1 SPRAY NASAL BID, #1 BOTTLE TO EACH NOSTRIL Prov:BERTIN HOLM MD 10/05/17 Albuterol Sulfate* (Ventolin HFA*) 18 Gm Hfa.aer.ad, 2 PUFF INHALATION Q4H, #1 INHALER Prov:BERTIN HOLM MD 10/05/17 Medications Current Medications IV Flush (NS 3 ml) 3 ml PER PROTOCOL IV ; Start 05/23/19 at 03:00 Ondansetron HCl (Zofran Inj) 4 mg Q6H PRN IV NAUSEA/VOMITING Last administered on 05/24/19at 13:38; Admin Dose 4 MG; Start 05/23/19 at 03:00 Acetaminophen (Tylenol Tab) 650 mg Q6H PRN PO .PAIN 1-3 OR TEMP Last administered on 05/26/19 12:18; Admin Dose 650 MG; Start 05/23/19 at 03:00 Docusate Sodium (Colace) 100 mg Q12H PRN PO .CONSTIPATION Last administered on 05/26/19at 09:32; Admin Dose 100 MG; Start 05/23/19 at 03:00 Bisacodyl (Dulcolax) 5 mg DAILY PRN PO .CONSTIPATION Last administered on 05/26/19at 09:32; Admin Dose 5 MG; Start 05/23/19 at 03:00 Hydralazine HCl (Apresoline) 10 mg Q4H PRN IV ELEVATED SYSTOLIC BP; Start 05/23/19 at 06:00 Albuterol (Proventil 0.083% (Neb)) 2.5 mg Q4H RESP THERAPY PRN HHN SHORTNESS OF BREATH; Start 05/23/19 at 06:00 Nitroglycerin (Nitroglycerin (Sl Tab) 0.4 Mg) 1 tab Q5M PRN SL ANGINA; Start 05/23/19 at 15:30 Pantoprazole (Protonix Tab) 40 mg DAILY@06 PO Last administered on 05/26/19at 05:51; Admin Dose 40 MG; Start 05/24/19 at 06:00 Enoxaparin Sodium (Lovenox) 40 mg DAILY SC Last administered on 05/26/19at 09:56; Admin Dose 40 MG; Start 05/24/19 at 09:00 Amlodipine Besylate (Norvasc) 2.5 mg HS PO Last administered on 05/25/19at 21:06; Admin Dose 2.5 MG; Start 05/24/19 at 21:00 Aspirin (Halfprin) 81 mg DAILY PO Last administered on 05/26/19at 09:32; Admin Dose 81 MG; Start 05/24/19 at 16:00 Meclizine HCl (Antivert) 12.5 mg Q8 PRN PO dizziness Last administered on 05/26/19 09:46; Admin Dose 12.5 MG; Start 05/25/19 at 14:30 Ibuprofen (Motrin) 400 mg Q6H PRN PO MILD PAIN(1-3) OR TEMP>38C Last administered on 05/26/19at 09:46; Admin Dose 400 MG; Start 05/25/19 at 14:30 Assessment/Plan Hospital Course (Demo Recall) 1. Chest pain, assess for acute coronary syndrome which is somewhat atypical at this time to allow for cardiac etiology but ongoing symptoms. Per patient, had had a history of RI, but per chart it appears the patient had an admit for chest pain with negative troponins.- now neg trop x 3 this admit, Lexiscan with NL EF and no ischemia - no CP now. 2. Abnormal electrocardiogram with isolated T flattened in aVL-neg trop's/neg ischemia by lexiscan - r/o RI< negative stress test. 3. Hypertension,-improved on low dose CCB/norvasc 4. Presyncope with ongoing dizziness. Rule out cardiac arrhythmia, rule out acute CVA. Negative head CT at this time.-no sig arrythmia by tele monitor - no ectopy on tele now. 5. Dyslipidemia with low HDL.-LDL 100 HDL 46 6. Signs of dehydration by labs. 7. Blurry vision, rule out cerebrovascular accident or primary visual disturbance.-negative head ct this admit, MRI/MRA without sig findings DIANE POLLARD MD May 26, 2019 12:35
--- NOTE | 2019-05-26 13:34 | PN ---
Date/Time of Note Date/Time of Note DATE: 05/26/19 TIME: 13:31 Assessment/Plan VTE Prophylaxis Risk score (from Ns)>0 risk: 1 SCD applied [place] [facility] [place] No SCD contraindicated: low risk/ambulating Pharmacological prophylaxis: NA/contraindicated Pharm contraindication: low risk/ambulating Lines/Catheters IV Catheter Type (from [facility]): Peripheral IV Urinary Cath still in place: No Assessment/Plan Assessment/Plan 1 Dizziness +headaches+blurry vision? stress headches/migraines/ temporal arteritis vs vs vision changes vs vertigo, MRI and MRA neg 3. Prerenal azotemia secondary to hypodynamics. 4. Hx of [place] 10 years ago 5. Bilateral breast benign tumor removal. 6. Nicotine dependence 7. Overweight 8. CAD 9. Dirty UA, repeat Assessment/Plan -- ESR minimally elevated - will get Ct [facility] spine and optho consult - fu neuro recs - EEG pending - cw Ibuprofen, narcotics? - meclizine - fu neuro recs Result Diagram: 05/26/19 0550 05/26/19 0550 Results 24hrs Laboratory Tests Test 05/26/19 05:50 White Blood Count 6.3 # Red Blood Count 4.41 Hemoglobin 13.7 Hematocrit 42.1 Mean Corpuscular Volume 95.5 Mean Corpuscular Hemoglobin 31.1 Mean Corpuscular Hemoglobin Concent 32.5 Red Cell Distribution Width 12.5 Platelet Count 192 Mean Platelet Volume 12.8 H Immature Granulocytes % 0.500 H Neutrophils % 66.2 Lymphocytes % 18.1 Monocytes % 9.8 Eosinophils % 4.8 Basophils % 0.6 Nucleated Red Blood Cells % 0.0 Immature Granulocytes # 0.030 Neutrophils # 4.2 Lymphocytes # 1.1 Monocytes # 0.6 Eosinophils # 0.3 Basophils # 0.0 Nucleated Red Blood Cells # 0.0 Erythrocyte Sedimentation Rate 35.0 H Sodium Level 138 Potassium Level 4.7 Chloride Level 104 Carbon Dioxide Level 23 Anion Gap 11 Blood Urea Nitrogen 17 Creatinine 0.67 Est Glomerular Filtrat Rate mL/min > 60 Glucose Level 95 Calcium Level 10.1 Total Bilirubin 0.5 Direct Bilirubin 0.00 Indirect Bilirubin 0.5 Aspartate Amino Transf (AST/SGOT) 58 H Alanine Aminotransferase (ALT/SGPT) 37 Alkaline Phosphatase 87 Total Protein 8.1 Albumin 4.6 Globulin 3.50 H Albumin/Globulin Ratio 1.31 Subjective 24 Hr Interval Summary Free Text/Dictation still having headachesblurry vision dizziness neck pain Exam/Review of Systems Exam Vitals Vital Signs Date Temp Pulse Resp B/P (MAP) Pulse Ox O2 O2 Flow FiO2 Time Delivery Rate 05/26/19 98.0 77 17 133/78 99 12:00 (96) 05/24/19 Room Air 15:42 Intake and Output 05/25/19 05/25/19 05/26/19 1515:00 23:00 07:00 IntakeIntake Total 700 ml 800 ml BalanceBalance 700 ml 800 ml Exam Constitutional: alert, oriented Psych: no complaints Respiratory: clear to auscultation Cardiovascular: regular rate and rhythm Gastrointestinal: soft Musculoskeletal: muscle weakness, other (uses cane) neuor exam non focal Results Results 24hrs Laboratory Tests Test 05/26/19 05:50 White Blood Count 6.3 # Red Blood Count 4.41 Hemoglobin 13.7 Hematocrit 42.1 Mean Corpuscular Volume 95.5 Mean Corpuscular Hemoglobin 31.1 Mean Corpuscular Hemoglobin Concent 32.5 Red Cell Distribution Width 12.5 Platelet Count 192 Mean Platelet Volume 12.8 H Immature Granulocytes % 0.500 H Neutrophils % 66.2 Lymphocytes % 18.1 Monocytes % 9.8 Eosinophils % 4.8 Basophils % 0.6 Nucleated Red Blood Cells % 0.0 Immature Granulocytes # 0.030 Neutrophils # 4.2 Lymphocytes # 1.1 Monocytes # 0.6 Eosinophils # 0.3 Basophils # 0.0 Nucleated Red Blood Cells # 0.0 Erythrocyte Sedimentation Rate 35.0 H Sodium Level 138 Potassium Level 4.7 Chloride Level 104 Carbon Dioxide Level 23 Anion Gap 11 Blood Urea Nitrogen 17 Creatinine 0.67 Est Glomerular Filtrat Rate mL/min > 60 Glucose Level 95 Calcium Level 10.1 Total Bilirubin 0.5 Direct Bilirubin 0.00 Indirect Bilirubin 0.5 Aspartate Amino Transf (AST/SGOT) 58 H Alanine Aminotransferase (ALT/SGPT) 37 Alkaline Phosphatase 87 Total Protein 8.1 Albumin 4.6 Globulin 3.50 H Albumin/Globulin Ratio 1.31 Medications Medication Current Medications IV Flush (NS 3 ml) 3 ml PER PROTOCOL IV ; Start 05/23/19 at 03:00 Ondansetron HCl (Zofran Inj) 4 mg Q6H PRN IV NAUSEA/VOMITING Last administered on 05/24/19 13:38; Admin Dose 4 MG; Start 05/23/19 at 03:00 Acetaminophen (Tylenol Tab) 650 mg Q6H PRN PO .PAIN 1-3 OR TEMP Last administered on 05/26/19 12:18; Admin Dose 650 MG; Start 05/23/19 at 03:00 Docusate Sodium (Colace) 100 mg Q12H PRN PO .CONSTIPATION Last administered on 05/26/19 09:32; Admin Dose 100 MG; Start 05/23/19 at 03:00 Bisacodyl (Dulcolax) 5 mg DAILY PRN PO .CONSTIPATION Last administered on 05/26/19 09:32; Admin Dose 5 MG; Start 05/23/19 at 03:00 Hydralazine HCl (Apresoline) 10 mg Q4H PRN IV ELEVATED SYSTOLIC BP; Start 05/23/19 at 06:00 Albuterol (Proventil 0.083% (Neb)) 2.5 mg Q4H RESP THERAPY PRN HHN SHORTNESS OF BREATH; Start 05/23/19 at 06:00 Nitroglycerin (Nitroglycerin (Sl Tab) 0.4 Mg) 1 tab Q5M PRN SL ANGINA; Start 05/23/19 at 15:30 Pantoprazole (Protonix Tab) 40 mg DAILY@06 PO Last administered on 05/26/19 05:51; Admin Dose 40 MG; Start 05/24/19 at 06:00 Enoxaparin Sodium (Lovenox) 40 mg DAILY SC Last administered on 05/26/19 09:56; Admin Dose 40 MG; Start 05/24/19 at 09:00 Amlodipine Besylate (Norvasc) 2.5 mg HS PO Last administered on 05/25/19 21:06; Admin Dose 2.5 MG; Start 05/24/19 at 21:00 Aspirin (Halfprin) 81 mg DAILY PO Last administered on 05/26/19 09:32; Admin Dose 81 MG; Start 05/24/19 at 16:00 Meclizine HCl (Antivert) 12.5 mg Q8 PRN PO dizziness Last administered on 05/26/19 09:46; Admin Dose 12.5 MG; Start 05/25/19 at 14:30 Ibuprofen (Motrin) 400 mg Q6H PRN PO MILD PAIN(1-3) OR TEMP>38C Last administered on 05/26/19at 09:46; Admin Dose 400 MG; Start 05/25/19 at 14:30 JETT MUNOZ MD May 26, 2019 13:34
[2019-05-26] MEDS ORDERED: HYDROCODONE/APAP (5/325) TAB PO PRN (14:00)
[2019-05-26 15:24] VITALS: BP 128/84; PULSE 76; RESP 17
[2019-05-26 19:23] VITALS: BP 131/83; PULSE 89; RESP 21
[2019-05-26] MEDS: AMLODIPINE 2.5 MG TAB PO SCH (20:47)
[2019-05-26 23:40] VITALS: BP 133/89; PULSE 98; RESP 22
--- NOTE | 2019-05-27 02:43 | HKNOTE ---
DATE OF SERVICE: 05/26/2019 The patient is 49 years old, EEG done using 10-20 International electrode system with photic stimulat ion. Bilateral occipital hemisphere view shows alpha wave 8 to 9 Hz, medium sized, low amplitude, ar e symmetric bilateral. Photic stimulation done did not elicit a drive. No epileptiform discharge or seizure activity is recorded. IMPRESSION: This is normal electroencephalogram. Normal electroencephalogram does not exclude a cli nical history of seizure. Followup EEG may be needed if clinically indicated. Dictated By: CARLA MCCULLOUGH MD NA/NTS Conf#: [id number] DID#: [id number] CC: NORMA TEJADA MD;*EndCC*
--- NOTE | 2019-05-27 03:11 | HKNOTE ---
DATE OF SERVICE: HISTORY OF PRESENT ILLNESS: The patient is 49 years old status post dizzy spell, headaches, hyperten aguila, dyslipidemia, chest pain, myocardial infarction, azotemia, coronary artery disease, nicotine de pendency. PHYSICAL EXAMINATION: GENERAL: Today, the patient is alert, awake, oriented, following simple commands. CRANIAL NERVES: Cranial nerve II: Pupils equal both sides, reactive to light. Cranial nerves III, IV and : Extraocular muscles are intact without nystagmus. Cranial nerve V: Equal sensation to f дмитрий. Cranial nerve VII: Symmetrical face. Cranial nerve VIII: Decreased hearing bilaterally. Surgical Garment Fitter nial IX and X: Elevates palate. Cranial XI: Elevates shoulder 5/5. Cranial nerve XII: With strai ght tongue. MOTOR: Decreased right hand dynamics ax consultant, 4+/5. SENSATION: Decreased for glove and sock area for light touch and temperature. COORDINATION: Tnfczf-[id number]-[id number] test intact. HEART: Regular rate and rhythm. LUNGS: Equal breath sounds. ABDOMEN: Soft, relaxed, nondistended. No tenderness. ASSESSMENT AND PLAN: 1. The patient is 49 years old status post underlying transient ischemic attack. Continue the patient on aspirin 81 mg once a day. 2. Dizziness, probably secondary to #1. 3. Underlying myocardial infarction in the past, which the patient is followed by cardiology. 4. Hypertension. Keep the blood pressure at the level of 140/90. 5. Dyslipidemia. Continue the patient on Lipitor. 6. Dizzy spell with possible seizure; however, the EEG was normal, so will follow up [facility] outpatient [facility] for more evaluation and treatment. 7. The patient still has pain around her eye and might need to follow up with ophthalmology for more evaluation and treatment. Dictated By: CARLA MCCULLOUGH MD NA/NTS Conf#: [id number] DID#: [id number] CC: NORMA TEJADA MD;*End*
[2019-05-27] MEDS: PANTOPRAZOLE (EC) 40 MG TAB PO SCH (06:05)
[2019-05-27 07:50] VITALS: BP 128/81; PULSE 79; RESP 19
[2019-05-27] MEDS: ASPIRIN (EC) 81 MG TAB PO SCH (09:01)
[2019-05-27] MEDS: BISACODYL (EC) 5 MG TAB PO PRN (09:09)
[2019-05-27] MEDS: DOCUSATE SODIUM 100 MG CAP PO PRN (09:09)
[2019-05-27] MEDS: ENOXAPARIN 40 MG/0.4 ML SYG SC SCH (09:46)
[2019-05-27 11:44] VITALS: BP 135/89; PULSE 68; RESP 20
--- NOTE | 2019-05-27 12:20 | PN ---
Date/Time of Note Date/Time of Note DATE: 05/27/19 TIME: 12:17 Assessment/Plan VTE Prophylaxis Risk score (from Ns)>0 risk: 1 SCD applied (from Ns): No SCD contraindicated: low risk/ambulating Pharmacological prophylaxis: NA/contraindicated Pharm contraindication: low risk/ambulating Lines/Catheters IV Catheter Type (from Nrsg): Peripheral IV Urinary Cath still in place: No Assessment/Plan Assessment/Plan 49 1 Dizziness +headaches+blurry vision? stress headches/migraines/ temporal arteritis vs vs vision changes vs vertigo, MRI and MRA neg 3. Prerenal azotemia secondary to hypodynamics. 4. Hx of AL 10 years ago 5. Bilateral breast benign tumor removal. 6. Nicotine dependence 7. Overweight 8. CAD with chest pain> cleared by cards 9. Dirty UA, repeat Assessment/Plan -- ESR minimally elevated unlikely temporal arteritis - ct C Spine bony spurs - Opthal dr santo to see pt today - fu neuro recs - EEG neg per notes from neuro - cw Ibuprofen - meclizine - fu neuro recs dc planning once seen by optho Result Diagram: 05/26/19 0550 05/26/19 0550 Subjective 24 Hr Interval Summary Free Text/Dictation Feels better today Post to see an resistance brazer today Exam/Review of Systems Exam Vitals Vital Signs Date Temp Pulse Resp B/P (MAP) Pulse Ox O2 O2 Flow FiO2 Time Delivery Rate 05/27/19 98.1 68 20 135/89 98 11:44 (104) 05/24/19 Room Air 15:42 Intake and Output 05/26/19 05/26/19 05/27/19 1515:00 23:00 07:00 IntakeIntake Total 800 ml 740 ml BalanceBalance 800 ml 740 ml Exam Constitutional: alert, oriented Psych: no complaints Respiratory: clear to auscultation Cardiovascular: regular rate and rhythm Gastrointestinal: soft Musculoskeletal: muscle weakness, other (uses cane) neuor exam non focal Medications Medication Current Medications IV Flush (NS 3 ml) 3 ml PER PROTOCOL IV ; Start 05/23/19 at 03:00 Ondansetron HCl (Zofran Inj) 4 mg Q6H PRN IV NAUSEA/VOMITING Last administered on 05/24/19at 13:38; Admin Dose 4 MG; Start 05/23/19 at 03:00 Acetaminophen (Tylenol Tab) 650 mg Q6H PRN PO .PAIN 1-3 OR TEMP Last administered on 05/26/19 20:48; Admin Dose 650 MG; Start 05/23/19 at 03:00 Docusate Sodium (Colace) 100 mg Q12H PRN PO .CONSTIPATION Last administered on 05/27/19 09:09; Admin Dose 100 MG; Start 05/23/19 at 03:00 Bisacodyl (Dulcolax) 5 mg DAILY PRN PO .CONSTIPATION Last administered on 05/27/19 09:09; Admin Dose 5 MG; Start 05/23/19 at 03:00 Hydralazine HCl (Apresoline) 10 mg Q4H PRN IV ELEVATED SYSTOLIC BP; Start 05/23/19 at 06:00 Albuterol (Proventil 0.083% (Neb)) 2.5 mg Q4H RESP THERAPY PRN HHN SHORTNESS OF BREATH; Start 05/23/19 at 06:00 Nitroglycerin (Nitroglycerin (Sl Tab) 0.4 Mg) 1 tab Q5M PRN SL ANGINA; Start 05/23/19 at 15:30 Pantoprazole (Protonix Tab) 40 mg DAILY@06 PO Last administered on 05/27/19 06:05; Admin Dose 40 MG; Start 05/24/19 at 06:00 Enoxaparin Sodium (Lovenox) 40 mg DAILY SC Last administered on 05/27/19 09:46; Admin Dose 40 MG; Start 05/24/19 at 09:00 Amlodipine Besylate (Norvasc) 2.5 mg HS PO Last administered on 05/26/19 20:47; Admin Dose 2.5 MG; Start 05/24/19 at 21:00 Aspirin (Halfprin) 81 mg DAILY PO Last administered on 05/27/19 09:01; Admin Dose 81 MG; Start 05/24/19 at 16:00 Meclizine HCl (Antivert) 12.5 mg Q8 PRN PO dizziness Last administered on 05/26/19 20:46; Admin Dose 12.5 MG; Start 05/25/19 at 14:30 Ibuprofen (Motrin) 400 mg Q6H PRN PO MILD PAIN(1-3) OR TEMP>38C Last administered on 05/26/19at 09:46; Admin Dose 400 MG; Start 05/25/19 at 14:30 Acetaminophen/ Hydrocodone Bitart ([place] (5)) 1 tab Q4H PRN PO MODERATE PAIN LEVEL 4-6; Start 05/26/19 at 14:00 JETT MUNOZ MD May 27, 2019 12:20
--- NOTE | 2019-05-27 12:21 | PDOCDIS ---
Discharge Instructions DIAGNOSIS Discharge Diagnosis chest pain neg stress test dizzines/blurry vision HOME CARE INSTRUCTIONS: [id number] Diet Instructions: [id number] Regular ACTIVITY: [id number] Activity Restrictions: [id number] Slowly Increase Activity Rest between Activity Avoid heavy lifting FOLLOW UP/APPOINTMENTS Follow-up Plan fu PCP in 1 -2 weeks JETT MUNOZ MD May 27, 2019 12:21
[2019-05-27] MEDS ORDERED: ASPI-1044 PO (12:23)
[2019-05-27] MEDS ORDERED: MECL12.574 PO (12:23)
[2019-05-27] MEDS ORDERED: IBUP-1541 PO (12:23)
--- NOTE | 2019-05-27 14:07 | CONS ---
Assessment/Plan Assessment/Plan Hospital Course (Demo Recall) IMPRESSION: 1. Chest pain, assess for acute coronary syndrome which is somewhat atypical at this time to allow for cardiac etiology but ongoing symptoms. Per patient, had had a history of UT, but per chart it appears the patient had an admit for chest pain with negative troponins.- now neg trop x 3 this admit, Lexiscan with NL EF and no ischemia this admit. Echo this admit with NL EF and no sig valve abnl 2. Abnormal electrocardiogram with isolated T flattened in aVL-neg trop's/neg ischemia by lexiscan 3. Hypertension,-improved on low dose CCB/norvasc 4. Presyncope with ongoing dizziness. Rule out cardiac arrhythmia, rule out acute CVA. Negative head CT at this time.-no sig arrythmia by tele monitor 5. Dyslipidemia with low HDL.-LDL 100 HDL 46 6. Signs of dehydration by labs. 7. Blurry vision, rule out cerebrovascular accident or primary visual disturbance.-negative head ct this admit, MRI/MRA without sig findings Recc: -Tele -Continue current low dose norvasc at d/c -Continue asa -s/p neuro eval without sig findings -continue meclizine Consultation Date/Type/Reason Admit Date/Time May 26, 2019 at 07:34 Initial Consult Date 05/23/19 Type of Consult Cardiology Reason for Consultation chest pain Requesting Provider: NORMA TEJADA MD Date/Time of Note DATE: 05/27/19 TIME: 14:04 Exam/Review of Systems Vital Signs Vitals Vital Signs Date Temp Pulse Resp B/P (MAP) Pulse Ox O2 O2 Flow FiO2 Time Delivery Rate 05/27/19 98.1 68 20 135/89 98 11:44 (104) 05/24/19 Room Air 15:42 Intake and Output 05/26/19 05/26/19 05/27/19 1515:00 23:00 07:00 IntakeIntake Total 800 ml 740 ml BalanceBalance 800 ml 740 ml Exam Exam Review of Systems: CONSTITUTIONAL: No fevers, chills. PULMONARY: No sob CARDIOVASCULAR: No chest pain/palpitations GASTROINTESTINAL: No nausea/vomiting. GENITOURINARY: No hematuria/dysuria. MUSCULOSKELETAL: No myagias/arthalgias. PSYCHIATRIC: The patient denies depression. NEUROLOGIC: ongoing dizziness/blurred vision Constitutional: alert Psych: no complaints Head: normocephalic ENMT: mucosa pink and moist Neck: supple, jvd (9 cm water) Respiratory: diminished breath sounds (at bases/B) Cardiovascular: regular rate and rhythm Gastrointestinal: soft, non-tender Musculoskeletal: muscle tone (normal) Extremities: edema (none) Neurological: other (dizziness ongoing) Labs Result Diagram: 05/26/19 0550 05/26/19 0550 Medications Medications Current Medications IV Flush (NS 3 ml) 3 ml PER PROTOCOL IV ; Start 05/23/19 at 03:00 Ondansetron HCl (Zofran Inj) 4 mg Q6H PRN IV NAUSEA/VOMITING Last administered on 05/24/19at 13:38; Admin Dose 4 MG; Start 05/23/19 at 03:00 Acetaminophen (Tylenol Tab) 650 mg Q6H PRN PO .PAIN 1-3 OR TEMP Last admini stered on 05/26/19at 20:48; Admin Dose 650 MG; Start 05/23/19 at 03:00 Docusate Sodium (Colace) 100 mg Q12H PRN PO .CONSTIPATION Last administered on 05/27/19at 09:09; Admin Dose 100 MG; Start 05/23/19 at 03:00 Bisacodyl (Dulcolax) 5 mg DAILY PRN PO .CONSTIPATION Last administered on 05/27/19at 09:09; Admin Dose 5 MG; Start 05/23/19 at 03:00 Hydralazine HCl (Apresoline) 10 mg Q4H PRN IV ELEVATED SYSTOLIC BP; Start 05/23/19 at 06:00 Albuterol (Proventil 0.083% (Neb)) 2.5 mg Q4H RESP THERAPY PRN HHN SHORTNESS OF BREATH; Start 05/23/19 at 06:00 Nitroglycerin (Nitroglycerin (Sl Tab) 0.4 Mg) 1 tab Q5M PRN SL ANGINA; Start 05/23/19 at 15:30 Pantoprazole (Protonix Tab) 40 mg DAILY@06 PO Last administered on 05/27/19at 06:05; Admin Dose 40 MG; Start 05/24/19 at 06:00 Enoxaparin Sodium (Lovenox) 40 mg DAILY SC Last administered on 05/27/19at 09:46; Admin Dose 40 MG; Start 05/24/19 at 09:00 Amlodipine Besylate (Norvasc) 2.5 mg HS PO Last administered on 05/26/19at 20:47; Admin Dose 2.5 MG; Start 05/24/19 at 21:00 Aspirin (Halfprin) 81 mg DAILY PO Last administered on 05/27/19at 09:01; Admin Dose 81 MG; Start 05/24/19 at 16:00 Meclizine HCl (Antivert) 12.5 mg Q8 PRN PO dizziness Last administered on 05/26/19at 20:46; Admin Dose 12.5 MG; Start 05/25/19 at 14:30 Ibuprofen (Motrin) 400 mg Q6H PRN PO MILD PAIN(1-3) OR TEMP>38C Last administered on 05/26/19at 09:46; Admin Dose 400 MG; Start 05/25/19 at 14:30 Acetaminophen/ Hydrocodone Bitart ([place] (5/325)) 1 tab Q4H PRN PO MODERATE PAIN LEVEL 4-6; Start 05/26/19 at 14:00 VINCENT FIELD May 27, 2019 14:07
[2019-05-27 15:36] VITALS: BP 132/81; PULSE 71; RESP 20
--- NOTE | 2019-05-27 18:20 | CONS ---
DATE OF ADMISSION: 05/26/2019 DATE OF CONSULTATION: 05/27/2019 OPHTHALMOLOGY CONSULTATION REFERRING PHYSICIAN: Dr. Peacock. Thank you for asking me to see this 49-year-old female patient who was admitted through the emergency room 4 days ago with a diagnosis of syncope and complaints of decreased vision involving the right e ye. The patient denies prior history of eye disease or injury and has not needed to wear glasses exc ept for reading. The patient states that the vision in the right eye has been intermittently blurry and associated with frontal headaches and dizziness. The patient denies history of sinus infection o r prior history of head trauma. The patient's systemic history is positive for hypertension which is controlled with medication. PHYSICAL EXAMINATION: The visual acuity without correction is 20/60 in the right eye and 20/40 in th e left eye. The extraocular movement appears full. The pupil of each eye is 3 mm, round and reactiv e to light. There is no afferent pupillary defect noted in the right eye. Confrontation visual fiel d is noted to be within normal limits in both eyes. Palpation of the patient's temporal region is no t positive for any tenderness or possible inflamed temporal artery. The patient has had a sed rate t est done earlier today and the results were not significantly elevated. Examination of the anterior segment in both eyes appears quiet. The corneas are clear. There is no evidence of any inflammation . Applanation tonometry is 18 mmHg in both eyes. Examination of the ocular media does not reveal th e presence of any opacities. Examination of the retina reveals normal appearing optic disks, macula and blood vessels. DIAGNOSIS: Decreased visual acuity right eye associated with frontal region pain, etiology unclear. COMMENT: No obvious ocular pathology is seen at this bedside examination. The patient has been so i nformed and told that following discharge from the hospital, she can return to my office for a [facility] ophthalmic exam, including a refraction to determine the cause of the patient's visual difficulty. Dictated By: HILARY DOWD MD BM/NTS Conf#: [id number] DID#: [id number] CC: BHARGAV PEACOCK MD;*EndCC*
--- NOTE | 2019-05-28 03:07 | DS ---
DATE OF ADMISSION: 05/26/2019 DATE OF DISCHARGE: 05/27/2019 HISTORY OF PRESENT ILLNESS AND HOSPITAL COURSE: A 49-year-old female who presented to the ER because of dizziness, blurry vision, right-sided headache for 1 week. She had a cold more than a week ago, seen in the ER 6 days ago, treated with Zithromax, felt better and was discharged home. The patient was also having some dyspnea on exertion and some chest pain on admission. On admission, vital signs were stable. The patient was seen by cardiology consultation with Dr. Fernandez. Sodium was 136, potassium 4.2, creatinine 0.9, BUN of 32. BNP less than 11. INR 0.92. U-tox negati ve. Chest x-ray showed no acute abnormalities. CT of the head shows mild diffuse volume loss. EKG shows sinus rhythm with a heart rate of 67 with isolated T-wave flattening in aVL. The patient was admitt ed for cardiac workup, had initial troponins that were negative. Also had an echocardiogram that erlin wed normal left ventricular systolic function, EF of 60% and normal diastolic function. The patient also had a stress test on 05/24/2019, which was negative for any ischemia. The patient started havin g pain with headaches, dizziness and weakness on the right side. Patient was seen by neurology consu ltation with Dr. Olivier and initially he thought there was the possibility that he suspected a str jennyfer. MRI/MRA, which were negative. The patient also got an EEG done, which was negative. The patie nt kept on having persistent symptoms like dizziness, right-sided headache and some blurry vision. T he patient's TSH was checked within normal limits. The patient had a carotid Doppler study which was negative. The patient was also started on aspirin, amlodipine, a trial was given for meclizine. Th e patient persistent had neck pain. Had a CT of the C-spine did show multilevel anterior osteophytes extending anterior to C3-C7. Due to persistent symptoms, there was a thought of possibly to tempora l arteritis, but ESR was only minimally elevated and per neurology is unlikely. The patient was also seen by ophthalmology and was cleared for discharge. The patient's symptoms improved and currently stable to be discharged home. FINAL DISCHARGE DIAGNOSES: 1. Chest pain, atypical. History of myocardial infarction in the past. Negative troponin. Lexiscan normal EF and no ischemia. Echo with normal ejection fraction. 2. Abnormal EKG with isolated T-wave flattening in aVL, negative troponins, negative ischemia by Gerardo iscan. 3. Dizziness, right-sided headache, some blurry vision, resolved. Stress headaches versus migraine versus vertigo. MRI/MRA of the brain negative. The patient was seen by ophthalmology and cleared. ESR minimally elevated. 4. Prerenal azotemia secondary to hypodynamic, resolved. 5. History of myocardial infarction 10 years ago. 6. Bilateral breast tumor removal. 7. Nicotine dependence. 8. Overweight. DISCHARGE CONDITION: Stable. DISCHARGE MEDICATIONS: 1. Aspirin 81 mg p.o. every day. 2. Ibuprofen 400 mg p.o. q.6 p.r.n. pain. 3. Meclizine 12.5 mg p.o. q.8 p.r.n. dizziness. 4. Continue Albuterol. 5. Amlodipine 2.5. 6. Hydroxyzine p.r.n. 7. Prilosec 20. The patient was instructed to follow with PCP in 1 to 2 weeks. Dictated By: JETT BAEZA/ANA Conf#: [id number] DID#: [id number] CC: NORMA TEJADA MD;*[facility]*
--- NOTE | 2019-05-28 03:37 | HKNOTE ---
DATE OF SERVICE: 05/27/2019 HISTORY OF PRESENT ILLNESS: The patient is 49 years old status post dizziness, headache, hypertensio n, dyslipidemia, myocardial infarction, azotemia. PHYSICAL EXAMINATION: GENERAL: The patient is alert, awake, following simple commands. CRANIAL NERVES: Cranial nerve II: Pupils equal on both sides, reactive to light. Cranial nerves II I, IV and : Extraocular muscles are intact without nystagmus. Cranial nerve V: Equal sensation t o face. Cranial nerve VII: Symmetrical face. Cranial nerve VIII: Decreased hearing bilaterally. Cranial nerve X: Elevates palate. Cranial nerve XI: Elevates shoulder 5/5. Cranial nerve XII: Wi th straight tongue. MOTOR: Decreased right hand double end trimmer, 4+/5. SENSATION: Decreased for glove and sock area for light touch and temperature. COORDINATION: Vvduzu-ib-voii test intact. HEART: Regular rate and rhythm. LUNGS: Equal breath sounds. ABDOMEN: Soft, relaxed, nondistended. No tenderness. ASSESSMENT AND PLAN: 1. The patient is 49 years old status post underlying transient ischemic attack. Continue the patie nt on aspirin 81 mg. 2. Dizziness, probably secondary to #1. 3. History of underlying myocardial infarction, which the patient is followed by cardiology consult. 4. Hypertension. Keep the blood pressure at the level of 140/90. 5. Benign positional vertigo. Continue the patient Antivert 12.5 mg every 8 hours as needed. 6. Follow up the patient in outpatient clinic. Dictated By: CARLA MCCULLOUGH MD NA/NTS Conf#: [id number] DID#: [id number] CC: NORMA TEJADA MD;*EndCC*
== END 2019-05-27 17:00 | disposition home health service (06) | DRG 69 ==
LOC: E/R 18:47 → TEL 05-23 02:45 → OBSVTOIN 05-26 07:34
PROVIDERS: ADMIT Internal Medicine Nephrology; ATTEND Internal Medicine Nephrology
DX: G45.9 Transient cerebral ischemic attack, unspecified (principal); I10 Essential (primary) hypertension; I25.10 Atherosclerotic heart disease of native coronary artery without angina pectoris; I25.2 Old myocardial infarction; F17.210 Nicotine dependence, cigarettes, uncomplicated; E86.0 Dehydration; E78.5 Hyperlipidemia, unspecified; R94.31 Abnormal electrocardiogram [ECG] [EKG]; R79.89 Other specified abnormal findings of blood chemistry; E66.3 Overweight; R26.9 Unspecified abnormalities of gait and mobility; Z79.82 Long term (current) use of aspirin; H81.10 Benign paroxysmal vertigo, unspecified ear; R07.89 Other chest pain
CPT/HCPCS: 36415; 70450; 70544; 70553; 71045; 72125; 78452; 80053; 80061; 80307; 81003; 81025; 82306; 83036; 83735; 83880; 84443; 84484; 84560; 85025; 85378; 85610; 85651; 85730; 93005; 93017; 93306; 93880; 93971; 95819; 97161; G0378; A9500; A9505; J1650; J2405; J2785; J7040

== ENCOUNTER 2019-09-16 08:55 | Emergency (ER) | payer MEDICARE, OTHER ==
[~2019-09-16] VITALS: Ht 170.2 cm; Wt 78.8 kg
[~2019-09-16 08:55] MED LIST changes: -ACET-2047 PO; -ALBU18HF INHALATION; -ALBU2TAB5 PO; -ALBU4TAB4 PO; +AMOX500C2 PO; -ASPI-817 PO; +ASPI81TA52 PO; -AZIT250T PO; -BENZ-6 PO; +BUPR150T6 PO; -CETI10CA PO; -FLUT9.9S NASAL; -GUAI5SYR2 PO; -IBUP800T48 PO; -LORA1TAB54 PO; +LOSA25TA12 PO; -LOSA50TA14 PO; -MECL12.574 PO; +OMEP20CA17 PO; -PRED20TA PO; -PROM5SYR2 PO; -PROM6.2515 PO; +SERT-165 PO; +UDATA PO
[2019-09-16 09:04] VITALS: BP 117/75; PULSE 74; RESP 20; Ht 170.2 cm; Wt 78.8 kg
== END 2019-09-16 10:28 | disposition home or self-care (01) ==
LOC: FTE 08:55
DX: J06.9 Acute upper respiratory infection, unspecified (principal); I10 Essential (primary) hypertension; I25.10 Atherosclerotic heart disease of native coronary artery without angina pectoris; Z79.82 Long term (current) use of aspirin
CPT/HCPCS: 71045